=== PATIENT | male | born 1960 | race Caucasian/White ===

== ENCOUNTER 2017-05-23 16:38 | Emergency (ER) | payer MEDICARE ==
[2017-05-23] MEDS ORDERED: NORMAL SALINE 1000 ML 1,000 ML IV PRN (17:08)
--- NOTE | 2017-05-23 17:09 | ER Document Report ---
ED Medical Screen (RME) - General Chief Complaint: Abdominal Pain Stated Complaint: ABDOMINAL PAIN Time Seen by Provider: 05/23/17 17:07 Notes: Patient presents with days of right lower quadrant abdominal pain. It does radiate into his right inguinal area. He states he has been trouble getting his urine output. Patient denies any diarrhea. He has had decreased appetite. No fevers. The pain has been increasing over the last several days. TRAVEL OUTSIDE OF THE [place] IN LAST 30 DAYS: No - Related Data Allergies/Adverse Reactions: sulfamethoxazole [From Bactrim] Allergy (Mild, Verified 05/23/17 16:58) Generalized Itching trimethoprim [From Bactrim] Allergy (Mild, Verified 05/23/17 16:58) Generalized Itching latex Allergy (Verified 05/23/17 16:47) morphine Allergy (Verified 05/23/17 16:58) Generalized Itching Past Medical History - Past Medical History Cardiac Medical History: Reports: Hx Hypertension Pulmonary Medical History: Reports: Hx COPD Renal/ Medical History: Denies: Hx Peritoneal Dialysis Musculoskeltal Medical History: Reports Hx Arthritis Psychiatric Medical History: Reports: Hx Depression Past Surgical History: Reports: Hx Orthopedic Surgery - Bilat hip replacements March and april 2014 - Immunizations Hx Diphtheria, Pertussis, Tetanus Vaccination: Yes Physical Exam - Vital signs Vitals: Temp Pulse Resp BP Pulse Ox 98.0 F 87 18 130/86 H 93 05/23/17 16:47 05/23/17 16:47 05/23/17 16:47 05/23/17 16:47 05/23/17 16:47 Course - Vital Signs Vital signs: Temp Pulse Resp BP Pulse Ox 98.0 F 87 18 130/86 H 93 05/23/17 16:47 05/23/17 16:47 05/23/17 16:47 05/23/17 16:47 05/23/17 16:47
[2017-05-23 17:31] LABS: APPEARANCE,URINE SLIGHTLY-CLOUDY; BILIRUBIN,URINE SMALL (NEGATIVE); GLUCOSE, URINE NEGATIVE (NEGATIVE); KETONES,URINE TRACE mg/dL (NEGATIVE); LEUKOCYTE ESTERASE,URINE NEGATIVE (NEGATIVE); NITRITE,URINE NEGATIVE (NEGATIVE); PROTEIN,URINE 30 mg/dL (NEGATIVE); URINE SPECIFIC GRAVITY 1.026
[2017-05-23 17:37] LABS: ABSOLUTE EOSINOPHILS # (AUTO) 0.4 10^3/uL (0.0-0.6); ABSOLUTE LYMPHOCYTES (AUTO) 2.1 10^3/uL (0.5-4.7); ABSOLUTE MONOCYTES (AUTO) 0.7 10^3/uL (0.1-1.4); ABSOLUTE NEUT (AUTO) 4.6 10^3/uL (1.7-8.2); BASOPHILS % (AUTO) 0.6 % (0-2); EOSINOPHILS % (AUTO) 5.5 % (0-6); HEMATOCRIT 45.3 % (37.9-51.0); HEMOGLOBIN 15.3 g/dL (13.5-17.0); HGB HCT DIFFERENCE 0.6; LYMPHOCYTES % (AUTO) 26.4 % (13-45); MEAN CORPUSCULAR HEMOGLOBIN 32.6 pg (27.0-33.4); MEAN CORPUSCULAR HGB CONC 33.8 g/dL (32.0-36.0); MEAN CORPUSCULAR VOLUME 96 fl (80-97); RED BLOOD COUNT 4.69 10^6/uL (4.35-5.55); RED CELL DISTRIBUTION WIDTH 15.6 % (11.5-14.0); SEGMENTED NEUTROPHILS % (AUTO) 58.5 % (42-78); WHITE BLOOD COUNT 7.9 10^3/uL (4.0-10.5)
[2017-05-23 17:53] LABS: ALANINE AMINOTRANSFERASE 34 U/L (21-72); ALBUMIN 4.5 g/dL (3.5-5.0); ALKALINE PHOSPHATASE 67 U/L (38-126); ANION GAP 10 (5-19); ASPARTATE AMINO TRANSFERASE 23 U/L (17-59); BILIRUBIN,DIRECT 0.4 mg/dL (0.0-0.4); BILIRUBIN,TOTAL 0.5 mg/dL (0.2-1.3); BLOOD UREA NITROGEN 11 mg/dL (7-20); CALCIUM 9.7 mg/dL (8.4-10.2); CARBON DIOXIDE 32 mmol/L (22-30); CHLORIDE 95 mmol/L (98-107); CREATININE RESULT 0.74 mg/dL (0.52-1.25); GLUCOSE 104 mg/dL (75-110); SODIUM 136.7 mmol/L (137-145); TOTAL PROTEIN 7.5 g/dL (6.3-8.2)
[2017-05-23] MEDS ORDERED: ONDANSETRON HCL INJ/PF 4 MG/2 ML SDV IV ONE (19:15)
[2017-05-23] MEDS ORDERED: FENTANYL CITRATE INJ/PF 100 MCG/2 ML AMPUL IV ONE (19:15)
--- NOTE | 2017-05-23 19:15 | ER Document Report ---
ED GI/ - General Chief Complaint: Abdominal Pain Stated Complaint: ABDOMINAL PAIN Time Seen by Provider: 05/23/17 17:07 Notes: Patient is a 56-year-old male comes emergency department for chief complaint of right lower abdominal pain. Symptoms have been worsening for several days, he states now he has no appetite, he has not eaten since yesterday. He reports normal bowel movements, states he has some discomfort with urination. He denies flank pain, fever. He has had multiple hernia repairs including 3 umbilical hernia repairs and a right inguinal hernia repair in the same location where he hurts today. He is new to the area from [place]. He smokes, has a history of COPD, denies cardiovascular history. He is not on a blood thinner. TRAVEL OUTSIDE OF THE [place] IN LAST 30 DAYS: No - Related Data Allergies/Adverse Reactions: sulfamethoxazole [From Bactrim] Allergy (Mild, Verified 05/23/17 16:58) Generalized Itching trimethoprim [From Bactrim] Allergy (Mild, Verified 05/23/17 16:58) Generalized Itching latex Allergy (Verified 05/23/17 16:47) morphine Allergy (Verified 05/23/17 16:58) Generalized Itching Past Medical History - General Information source: Patient - Social History Smoking Status: Current Every Day Smoker Smoking Education Provided: Yes - <3 min Frequency of alcohol use: None Drug Abuse: None Lives with: Family Family History: Reviewed & Not Pertinent, CAD, Malignancy Patient has suicidal ideation: No Patient has homicidal ideation: No - Past Medical History Cardiac Medical History: Reports: Hx Hypertension Pulmonary Medical History: Reports: Hx COPD Renal/ Medical History: Denies: Hx Peritoneal Dialysis Musculoskeltal Medical History: Reports Hx Arthritis Psychiatric Medical History: Reports: Hx Depression Past Surgical History: Reports: Hx Orthopedic Surgery - Bilat hip replacements March and april 2014 - Immunizations Hx Diphtheria, Pertussis, Tetanus Vaccination: Yes Hx Pneumococcal Vaccination: 06/04/14 Review of Systems - Review of Systems Constitutional: No symptoms reported EENT: No symptoms reported Cardiovascular: No symptoms reported Respiratory: No symptoms reported Gastrointestinal: See HPI Genitourinary: No symptoms reported Male Genitourinary: No symptoms reported Musculoskeletal: No symptoms reported Skin: No symptoms reported Hematologic/Lymphatic: No symptoms reported Neurological/Psychological: No symptoms reported Physical Exam - Vital signs Vitals: Temp Pulse Resp BP Pulse Ox 98.0 F 87 18 130/86 H 93 05/23/17 16:47 05/23/17 16:47 05/23/17 16:47 05/23/17 16:47 05/23/17 16:47 Interpretation: Normal - General General appearance: Appears well, Alert In distress: None - HEENT Head: Normocephalic, Atraumatic Eyes: Normal Pupils: PERRL - Respiratory Respiratory status: No respiratory distress Chest status: Nontender Breath sounds: Normal. No: Decreased air movement, Wheezing Chest palpation: Normal - Cardiovascular Rhythm: Regular. No: Tachycardia Heart sounds: Normal auscultation, S1 appreciated, S2 appreciated Murmur: No - Abdominal Inspection: Normal Distension: No distension Bowel sounds: Normal Tenderness: Tender - Examination consistent with right lower abdominal hernia, this is tender to palpation, however this is reducible. Shortly after reduction this is noted to return to coming out. No significant erythema to the area, area is not hard to the touch. Very mild generalized abdominal pain otherwise. Organomegaly: No organomegaly - Back Back: Normal, Nontender. No: Tender - Extremities General upper extremity: Normal inspection, Nontender, Normal strength, Normal temperature General lower extremity: Normal inspection, Nontender, Normal strength, Normal temperature - Neurological Neuro grossly intact: Yes Cognition: Normal Orientation: AAOx4 [place] Coma Scale Eye Opening: Spontaneous [place] Coma Scale Verbal: Oriented [place] Coma Scale Motor: Obeys Commands [place] Coma Scale Total: 15 Speech: Normal Motor strength normal: LUE, RUE, LLE, RLE Sensory: Normal - Psychological Associated symptoms: Normal affect, Normal mood - Skin Skin Temperature: Warm Skin Moisture: Dry Skin Color: Normal Course - Re-evaluation Re-evalutation: No leukocytosis, tachycardia, hypotension, or fever. Hernia is is not erythematous or rigid, seems to be reducible but immediately comes back out and is painful whenever the area is even mildly palpated. 05/23/17 19:40 Called and spoke with Surgeon, Dr. Virgen. He states he would like a CAT scan and he wants to be called back with the results. Surgeon called back, states he does not want oral contrast. CAT scan shows no acute abnormalities. Dr. Virgen at bedside, he evaluated the patient, agrees and the hernia is reducible and needs to be fixed but not emergently. His recommendation is for close follow-up at the surgical clinic, patient will be given symptom management, patient will also be given nicotine patches to help with smoking cessation which was discussed in detail. Discussed return precautions in detail as well. Patient states understanding and agreement. - Vital Signs Vital signs: Temp Pulse Resp BP Pulse Ox 98.1 F 79 18 140/93 H 97 05/23/17 21:24 05/23/17 21:24 05/23/17 21:24 05/23/17 21:24 05/23/17 21:24 - Laboratory Result Diagrams: 05/23/17 17:20 05/23/17 17:20 Laboratory results interpreted by me: 05/23/17 05/23/17 05/23/17 17:15 17:20 17:20 RDW 15.6 H Sodium 136.7 L Chloride 95 L Carbon Dioxide 32 H Urine Protein 30 H Urine Ketones TRACE H Urine Bilirubin SMALL H Urine Urobilinogen 2.0 H Urine Ascorbic Acid 20 H Discharge - Discharge Clinical Impression: Abdominal hernia Qualifiers: Hernia type: unspecified Obstruction and gangrene presence: without obstruction or gangrene Recurrence: not specified as recurrent Qualified Code(s) : K46.9 - Unspecified abdominal hernia without obstruction or gangrene Abdominal pain Qualifiers: Abdominal location: lower abdomen, unspecified Qualified Code(s): R10.30 - Lower abdominal pain, unspecified Condition: Stable Disposition: HOME, SELF-CARE Additional Instructions: Please call the surgical referral listed for a close follow-up with the surgical clinic for management and repair of your hernia. If you take the pain medicine, also take the stool softener. Stop smoking. Use the patches as prescribed. Return the emergency department for any concerning or worsening symptoms including severe pain, redness to the area, vomiting, fever, or any other concerning symptoms. Prescriptions: Docusate Sodium [Colace 100 mg Capsule] 100 mg PO DAILY #30 capsule Hydrocodone/Acetaminophen [[place] 5-325 Tablet] 1 - 2 each PO Q4H PRN #12 tablet PRN Reason: Nicotine [Nicoderm 21 mg/24 Hr Transderm Patch] 1 patch TD DAILY #30 patch.[email or web address] Forms: Smoking Cessation Education Referrals: VIC MENDEZ MD [ACTIVE STAFF] - Follow up tomorrow
--- NOTE | 2017-05-23 20:50 | RADIOLOGY REPORT (SQ) ---
EXAM DESCRIPTION: CT ABD/PELVIS WITH IV ONLY COMPLETED DATE/TIME: 05/23/2017 8:36 pm REASON FOR STUDY: right abd pain, eval hernia COMPARISON: None. TECHNIQUE: CT scan of the abdomen and pelvis performed using helical scanning technique with dynamic intravenous contrast injection. No oral contrast. Images reviewed with lung, soft tissue, and bone windows. Reconstructed coronal and sagittal MPR images reviewed. Delayed images for evaluation of the urinary system also acquired. All images stored on PACS. All CT scanners at this facility use dose modulation, iterative reconstruction, and/or weight based d osing when appropriate to reduce radiation dose to as low as reasonably achievable (ALARA). [facility]: Dose Right [facility]: CareDose [facility]: Dose Right [facility]: Teradose 4D [facility]: [place] CONTRAST TYPE AND DOSE: contrast/concentration: Isovue 370.00 mg/ml; Total Contrast Delivered: 92.0 ml; Total Saline Delivered: 70.0 ml RENAL FUNCTION: BUN 11, creatinine 0.74 RADIATION DOSE: Up-to-date CT equipment and radiation dose reduction techniques were employed. CTDIv ol: 17.6 - 18.8 mGy. DLP: 1785 mGy-cm.. LIMITATIONS: None. FINDINGS: LOWER CHEST: No significant findings. No nodules or infiltrates. LIVER: Normal size. No masses. No dilated ducts. SPLEEN: Normal size. No focal lesions. PANCREAS: No masses. No significant calcifications. No adjacent inflammation or peripancreatic fluid collections. Pancreatic duct not dilated. GALLBLADDER: No identified stones by CT criteria. No inflammatory changes to suggest cholecystitis. ADRENAL GLANDS: No significant masses or asymmetry. RIGHT KIDNEY AND URETER: No solid masses. No significant calcifications. No hydronephrosis or hyd roureter. LEFT KIDNEY AND URETER: No solid masses. No significant calcifications. No hydronephrosis or hydr oureter. AORTA AND VESSELS: No aneurysm. No dissection. Renal arteries, SMA, celiac without stenosis. RETROPERITONEUM: No retroperitoneal adenopathy, hemorrhage or masses. BOWEL AND PERITONEAL CAVITY: No masses or inflammatory changes. No free fluid or peritoneal masses. APPENDIX: Normal. PELVIS: No mass. No free fluid. Normal bladder. ABDOMINAL WALL: There is a small defect of the emboli kiss. This contains a small amount of omental fat. Small bowel is adjacent to the hernia but there is no incarceration. No obstruction. BONES: There are postsurgical changes in both hips. OTHER: No other significant finding. IMPRESSION: NO SIGNIFICANT OR ACUTE FINDING IN THE ABDOMEN OR PELVIS ON CT SCAN WITH IV CONTRAST. TECHNICAL DOCUMENTATION: JOB ID: [id number] Quality ID # [id number]: Final reports with documentation of one or more dose reduction techniques (e.g., Au tomated exposure control, adjustment of the mA and/or kV according to patient size, use of iterative reconstruction technique) 2010 [employer]- All Rights Reserved
[2017-05-23] MEDS ORDERED: HYDROCODONE/ACETAMINOPHEN 5-325 MG 6 TAB/DSPK PO PRN (20:56)
--- NOTE | 2017-05-23 21:13 | PDOC H&P ---
History of Present Illness Patient complains of: Right groin pain x 4 days with bulge, reduced History of Present Illness: SUNNY WALLS is a 56 year old male who comes to the emergency department with a complaint of right lower abdominal pain. Symptoms have been worsening for several days (about 4), he states now he has no appetite and has not eaten since yesterday. He reports normal bowel movements, states he has some discomfort with urination. He denies flank pain, fever. He has had multiple hernia repairs including 3 umbilical hernia repairs and a right inguinal hernia repair with mesh. The patient is a heavy smoker and has a history of COPD, denies cardiovascular history. He is not on a blood thinner. Past Medical History Cardiac Medical History: Reports: Hypertension Pulmonary Medical History: Reports: Chronic Obstructive Pulmonary Disease (COPD) Musculoskeltal Medical History: Reports: Arthritis Psychiatric Medical History: Reports: Depression Past Surgical History Past Surgical History: Reports: Orthopedic Surgery - Bilat hip replacements March and april 2014 Social History Information Source: Patient Occupation: retired Lives with: Family Smoking Status: Current Every Day Smoker - a few cigarettes/day Cigarettes Packs Per Day: 1 Cigars Per Day: 0 Pipes Per Day: 0 Number of Years Smokin Frequency of Alcohol Use: None Hx Recreational Drug Use: No Drugs: None Hx Prescription Drug Abuse: No Family History Family History: Reviewed & Not Pertinent, CAD, Malignancy Parental Family History Reviewed: Yes - none Children Family History Reviewed: Yes - none Sibling(s) Family History Reviewed.: Yes - none Medication/Allergy Home Medications: Citalopram Hydrobromide [Celexa 40 mg Tablet] 1 tab PO DAILY 06/16/16 Esomeprazole Mag Trihydrate [Nexium] 40 mg PO DAILY 06/16/16 Fluticasone/Vilanterol [Breo Ellipta 100-25 Mcg INH] 1 each IH QHS 06/16/16 Acetaminophen [Tylenol 325 mg Tablet] 650 mg PO Q4HP PRN tablet 06/17/16 Gabapentin [Neurontin 300 mg Capsule] 600 mg PO Q8 #180 capsule 06/17/16 Guaifenesin [Mucinex Sr 600 mg Tablet.sa] 1,200 mg PO Q12 #30 tablet.sa Ipratropium/Albuterol Sulfate [Duoneb 3 ml Ampul] 3 ml NEB Q6HP PRN #60 vial.neb 06/17/16 Levofloxacin [Levaquin 750 mg Tablet] 750 mg PO DAILY #7 tablet 06/17/16 Prednisone [Deltasone 20 mg Tablet] 20 mg PO ASDIR PRN #18 tablet 06/17/16 Tiotropium [place] [Spiriva Handihaler 5 Cap/Kit (18 Mcg/Cap)] 1 cap IH DAILY # 30 cap 06/17/16 Tramadol HCl [Ultram 50 mg Tablet] 50 mg PO Q4HP PRN #40 tablet 06/17/16 Docusate Sodium [Colace 100 mg Capsule] 100 mg PO DAILY #30 capsule 05/23/17 Hydrocodone/Acetaminophen [[place] 5-325 Tablet] 1 - 2 each PO Q4H PRN #12 tablet 05/23/17 Nicotine [Nicoderm 21 mg/24 Hr Transderm Patch] 1 patch TD DAILY #30 patch.td24 05/23/17 Allergies/Adverse Reactions: sulfamethoxazole [From Bactrim] Allergy (Mild, Verified 05/23/17 16:58) Generalized Itching trimethoprim [From Bactrim] Allergy (Mild, Verified 05/23/17 16:58) Generalized Itching latex Allergy (Verified 05/23/17 16:47) morphine Allergy (Verified 05/23/17 16:58) Generalized Itching Physical Exam Vital Signs: Temp Pulse Resp BP Pulse Ox 98.0 F 93 18 130/86 H 93 05/23/17 16:47 05/23/17 16:47 05/23/17 16:47 05/23/17 16:47 05/23/17 16:47 Intake & Output 05/22/17 05/23/17 05/24/17 06:59 06:59 06:59 Weight 85.6 kg General appearance: PRESENT: no acute distress Head exam: PRESENT: atraumatic Neck exam: PRESENT: full ROM Respiratory exam: PRESENT: clear to auscultation candi Cardiovascular exam: PRESENT: RRR GI/Abdominal exam: PRESENT: soft, other - R groin: minimally tender, bulge appreciated on coughing and Valsalva, but reducible Results Laboratory Results: 05/23/17 17:20 05/23/17 17:20 05/23/17 05/23/17 05/23/17 17:15 17:20 17:20 WBC 7.9 RBC 4.69 Hgb 15.3 Hct 45.3 MCV 96 MCH 32.6 MCHC 33.8 RDW 15.6 H Plt Count 232 Seg Neutrophils % 58.5 Lymphocytes % 26.4 Monocytes % 9.0 Eosinophils % 5.5 Basophils % 0.6 Absolute Neutrophils 4.6 Absolute Lymphocytes 2.1 Absolute Monocytes 0.7 Absolute Eosinophils 0.4 Absolute Basophils 0.0 Sodium 136.7 L Potassium 4.0 Chloride 95 L Carbon Dioxide 32 H Anion Gap 10 BUN 11 Creatinine 0.74 Est GFR ( Amer) > 60 Est GFR (Non-Af Amer) > 60 Glucose 104 Calcium 9.7 Total Bilirubin 0.5 AST 23 ALT 34 Alkaline Phosphatase 67 Total Protein 7.5 Albumin 4.5 Urine Color [place]N Urine Appearance SLIGHTLY-CLOUDY Urine pH 5.0 Ur Specific [place] 1.026 Urine Protein 30 H Urine Glucose (UA) NEGATIVE Urine Ketones TRACE H Urine Blood NEGATIVE Urine Nitrite NEGATIVE Ur Leukocyte Esterase NEGATIVE Urine WBC (Auto) 2 Urine RBC (Auto) 3 Impressions: Abdomen/Pelvis CT 05/23/17 19:52 IMPRESSION: NO SIGNIFICANT OR ACUTE FINDING IN THE ABDOMEN OR PELVIS ON CT SCAN WITH IV CONTRAST. Assessment & Plan - Plan Summary Plan Summary: A/ Right groin pain with bulge as per recurrent inguinal hernia (previously operated on 4 yrs ago) R groin bulge reduced in the ER by gentle pressure; currently no bulge appreciated except on Valsalva Blood work WNL Moderately severe COPD (patient on albuterol nebulizer) Current smoker P/ Patient can be safely discharged to home tonight Follow up in the clinic within [address] Waite for elective repair as outpatient Patient counseled about quitting smoking (i.e. Nicorette patches to be prescribed by ER MD) No heavy lifting/coughing until patient sees Dr. Waite in the office Should the patient experience right groin pain and or bulge before the office appointment, my recommendation is to return to the Emergency Room immediately for possible emergency herniorraphy The patient understands all the above
[2017-05-23 21:24] VITALS: BP 140/93
[2017-05-25] MEDS ORDERED: NORMAL SALINE 1000 ML 1,000 ML IV PRN (23:44)
--- NOTE | 2017-05-25 23:44 | PDOC H&P ---
History of Present Illness Admission Date/PCP: May 25 2017 Patient complains of: Right groin pain with urination History of Present Illness: This 56-year-old male was seen in the emergency room 48 hours ago because of a right inguinal hernia, which had become incarcerated, which was then reduced successfully. Patient was to see Dr. Waite tomorrow, May 26, but came to the emergency room because of recurrent pain in the right groin, especially with urination. He denies any nausea, vomiting, change in bowel habits, or recurrent incarceration. When seen in the emergency room today, patient was noted to have marked tenderness in the right groin, with no evidence of incarceration. This was the case [address] scan of the abdomen confirmed the absence of incarceration. Given the degree of tenderness in his right groin at this time, admission has been recommended, for repair of his right inguinal hernia in the a.m. Past Medical History Cardiac Medical History: Reports: Hypertension Pulmonary Medical History: Reports: Chronic Obstructive Pulmonary Disease (COPD) Musculoskeltal Medical History: Reports: Arthritis Psychiatric Medical History: Reports: Depression Past Surgical History Past Surgical History: Reports: Orthopedic Surgery - Bilat hip replacements March and april 2014 Social History Lives with: Family Smoking Status: Current Every Day Smoker Cigarettes Packs Per Day: 1 Cigars Per Day: 0 Pipes Per Day: 0 Number of Years Smokin Frequency of Alcohol Use: None Hx Recreational Drug Use: No Drugs: None Hx Prescription Drug Abuse: No Family History Family History: Reviewed & Not Pertinent, CAD, Malignancy Parental Family History Reviewed: No Children Family History Reviewed: No Sibling(s) Family History Reviewed.: No Medication/Allergy Home Medications: Citalopram Hydrobromide [Celexa 40 mg Tablet] 1 tab PO DAILY 06/16/16 Esomeprazole Mag Trihydrate [Nexium] 40 mg PO DAILY 06/16/16 Fluticasone/Vilanterol [Breo Ellipta 100-25 Mcg INH] 1 each IH QHS 06/16/16 Acetaminophen [Tylenol 325 mg Tablet] 650 mg PO Q4HP PRN tablet 06/17/16 Gabapentin [Neurontin 300 mg Capsule] 600 mg PO Q8 #180 capsule 06/17/16 Guaifenesin [Mucinex Sr 600 mg Tablet.sa] 1,200 mg PO Q12 #30 tablet.sa Ipratropium/Albuterol Sulfate [Duoneb 3 ml Ampul] 3 ml NEB Q6HP PRN #60 vial.neb 06/17/16 Levofloxacin [Levaquin 750 mg Tablet] 750 mg PO DAILY #7 tablet 06/17/16 Prednisone [Deltasone 20 mg Tablet] 20 mg PO ASDIR PRN #18 tablet 06/17/16 Tiotropium [place] [Spiriva Handihaler 5 Cap/Kit (18 Mcg/Cap)] 1 cap IH DAILY # 30 cap 06/17/16 Tramadol HCl [Ultram 50 mg Tablet] 50 mg PO Q4HP PRN #40 tablet 06/17/16 Docusate Sodium [Colace 100 mg Capsule] 100 mg PO DAILY #30 capsule 05/23/17 Hydrocodone/Acetaminophen [[place] 5-325 Tablet] 1 - 2 each PO Q4H PRN #12 tablet 05/23/17 Nicotine [Nicoderm 21 mg/24 Hr Transderm Patch] 1 patch TD DAILY #30 patch.td24 05/23/17 Allergies/Adverse Reactions: sulfamethoxazole [From Bactrim] Allergy (Mild, Verified 05/23/17 16:58) Generalized Itching trimethoprim [From Bactrim] Allergy (Mild, Verified 05/23/17 16:58) Generalized Itching latex Allergy (Verified 05/23/17 16:47) morphine Allergy (Verified 05/23/17 16:58) Generalized Itching Physical Exam Vital Signs: Temp Pulse Resp BP Pulse Ox 98.1 F 79 18 140/93 H 97 05/23/17 21:24 05/23/17 21:24 05/23/17 21:24 05/23/17 21:24 05/23/17 21:24 Intake & Output 05/24/17 05/25/17 05/26/17 06:59 06:59 06:59 Weight 85.6 kg General appearance: PRESENT: no acute distress, cooperative, morbidly obese, well-developed Eye exam: PRESENT: conjunctiva pink, PERRLA Mouth exam: PRESENT: moist, neck supple Neck exam: PRESENT: full ROM, JVD. ABSENT: lymphadenopathy, tenderness, thyromegaly, tracheal deviation Respiratory exam: PRESENT: clear to auscultation candi Cardiovascular exam: PRESENT: RRR GI/Abdominal exam: PRESENT: hernia, normal bowel sounds, soft, tenderness - Marked tenderness over the right inguinal canal. Bulge/positive cough reflex noted with Valsalva and coughing. Rectal exam: PRESENT: deferred Extremities exam: PRESENT: full ROM Musculoskeletal exam: PRESENT: full ROM Neurological exam: PRESENT: alert, awake, oriented to person, oriented to place , oriented to time, oriented to situation Psychiatric exam: PRESENT: appropriate affect, normal mood Skin exam: PRESENT: intact, normal color Results Laboratory Results: 05/23/17 17:20 05/23/17 17:20 Impressions: Abdomen/Pelvis CT 05/23/17 19:52 IMPRESSION: NO SIGNIFICANT OR ACUTE FINDING IN THE ABDOMEN OR PELVIS ON CT SCAN WITH IV CONTRAST. Assessment & Plan - Diagnosis (1) Right inguinal hernia Is this a current diagnosis for this admission?: Yes - Plan Summary Plan Summary: Repair of recurrent right inguinal hernia in the a.m.
[2017-05-25] MEDS ORDERED: CEFAZOLIN 2 GM/D5W RTU 2 GM/50 ML RTUPB IV SCH (23:45)
[2017-05-25] MEDS ORDERED: PREDNISONE 20 MG TABLET PO PRN (23:54)
[2017-05-25] MEDS ORDERED: IPRATROPIUM/ALBUTEROL 0.5-2.5 MG/3 ML AMPUL NEB PRN (23:54)
[2017-05-26] MEDS ORDERED: CEFAZOLIN 2 GM/D5W RTU 2 GM/50 ML RTUPB IV ONE (00:15)
--- NOTE | 2017-05-26 08:52 | RADIOLOGY REPORT (SQ) ---
EXAM DESCRIPTION: CHEST PA/LAT COMPLETED DATE/TIME: 05/26/2017 8:39 am REASON FOR STUDY: Preop COMPARISON: None. EXAM PARAMETERS: NUMBER OF VIEWS: two views TECHNIQUE: Digital Frontal and Lateral radiographic views of the chest acquired. RADIATION DOSE: NA LIMITATIONS: none FINDINGS: LUNGS AND PLEURA: COPD. Mild diffuse increased interstitial densities which appear more p rominent than on the prior study. Differential includes worsening chronic interstitial lung disease, interstitial pneumonitis and interstitial edema. There is no other evidence of congestive failure m aking edema less likely. MEDIASTINUM AND HILAR STRUCTURES: No masses or contour abnormalities. HEART AND VASCULAR STRUCTURES: Heart normal size. No evidence for failure. BONES: No acute findings. HARDWARE: None in the chest. OTHER: No other significant finding. IMPRESSION: 1. COPD. 2. Worsening mild diffuse increased interstitial densities with differential including chronic inter stitial lung disease, interstitial pneumonitis and interstitial edema. TECHNICAL DOCUMENTATION: JOB ID: [id number] [employer]- All Rights Reserved
[2017-05-26] MEDS ORDERED: TIOTROPIUM BROMIDE DPI 5 CAP/KIT (18 MCG/CAP) IH SCH (10:00)
[2017-05-26] MEDS ORDERED: PREDNISONE 20 MG TABLET PO SCH (10:00)
--- NOTE | 2017-05-26 18:49 | Brief Operative Note ---
BRIEF OPERATIVE REPORT DATE OF SURGERY: 05/26/17 TIME OF SURGERY: 17:30 PREOPERATIVE DIAGNOSIS: Right Inguinal Hernia POSTOPERATIVE DIAGNOSIS: Direct right inguinal hernia SURGEON: NAJMA PURCELL FINDINGS: Direct right inguinal hernia with incarcerated pre-peritoneal fat COMPLICATIONS: None ESTIMATED BLOOD LOSS: 1cc TISSUE REMOVED OR ALTERED: None TECHNICAL PROCEDURE: See Dictation
[2017-05-26] MEDS ORDERED: IPRATROPIUM/ALBUTEROL 0.5-2.5 MG/3 ML AMPUL NEB PRN (18:51)
[2017-05-26] MEDS ORDERED: ALBUTEROL SULFATE HFA (90 MCG/PUFF) 8 GM MDI (1 MDI/ER DISP) IH PRN (18:51)
[2017-05-26] MEDS ORDERED: FENTANYL 12 MCG/HR PATCH.TD72 TD PRN (18:51)
[2017-05-26] MEDS ORDERED: OXYCODONE HCL IR 5 MG TABLET PO PRN (20:34)
[2017-05-26] MEDS ORDERED: GABAPENTIN 300 MG CAPSULE PO SCH (22:00)
[2017-05-26] MEDS ORDERED: (PENDING PHARMACY ID) (Fluticasone/Vilanterol [Breo Ellipta 100-25 Mcg Inh] 1 EACH) IH SCH (22:00)
[2017-05-27] MEDS ORDERED: (PENDING PHARMACY ID) (Citalopram Hydrobromide [Celexa 40 Mg Tablet] 1 TAB) PO SCH (10:00)
[2017-05-27] MEDS ORDERED: CITALOPRAM HYDROBROMIDE 20 MG TABLET PO SCH (10:00)
[2017-05-29] MEDS ORDERED: PREDNISONE 20 MG TABLET PO SCH (10:00)
[2017-06-01] MEDS ORDERED: PREDNISONE 20 MG TABLET PO SCH (10:00)
== END 2017-05-23 21:28 | disposition home or self-care (01) ==
LOC: ER 16:38
DX: K40.91 Unilateral inguinal hernia, without obstruction or gangrene, recurrent (principal); R10.31 Right lower quadrant pain; R63.0 Anorexia; R30.0 Dysuria; J44.9 Chronic obstructive pulmonary disease, unspecified; I10 Essential (primary) hypertension; F17.200 Nicotine dependence, unspecified, uncomplicated; Z71.6 Tobacco abuse counseling; Z88.1 Allergy status to other antibiotic agents; Z91.040 Latex allergy status; Z88.5 Allergy status to narcotic agent
CPT/HCPCS: 99284; 96361; 96374; 96375; 36415; 85025; 80053; 81001; 74177; J3010; J2405; J7030; A9270; 71020

== ENCOUNTER 2017-05-25 19:37 | Observation (INO) | payer MEDICARE ==
[2017-05-25] MEDS ORDERED: FENTANYL CITRATE INJ/PF 100 MCG/2 ML AMPUL IV ONE ×2 (20:31→23:16)
[2017-05-25] MEDS ORDERED: ONDANSETRON HCL INJ/PF 4 MG/2 ML SDV IV ONE (20:31)
[2017-05-25] MEDS ORDERED: NORMAL SALINE 1000 ML 1,000 ML IV ONE (20:31)
--- NOTE | 2017-05-25 20:32 | ER Document Report ---
ED GI/ - General Chief Complaint: Groin Pain Stated Complaint: GROIN PAIN/ABDOMINAL PAIN Time Seen by Provider: 05/25/17 20:20 Notes: Patient is a 56-year-old male comes emergency department for return visit for known abdominal hernia, he reports the area has become persistently painful and he cannot stand it. He has a follow-up in the clinic for surgical consult tomorrow afternoon. He denies vomiting, fever, he is still moving his bowels and urinating. He has had 3 umbilical hernia repairs and a right inguinal hernia repair near the same location as the hernia today. He has also had hip replacements. He smokes, past medical history of COPD. TRAVEL OUTSIDE OF THE [place] IN LAST 30 DAYS: No - Related Data Allergies/Adverse Reactions: sulfamethoxazole [From Bactrim] Allergy (Mild, Verified 05/23/17 16:58) Generalized Itching trimethoprim [From Bactrim] Allergy (Mild, Verified 05/23/17 16:58) Generalized Itching latex Allergy (Verified 05/23/17 16:47) morphine Allergy (Verified 05/23/17 16:58) Generalized Itching Past Medical History - General Information source: Patient - Social History Smoking Status: Never Smoker Frequency of alcohol use: None Drug Abuse: None Lives with: Family Family History: Reviewed & Not Pertinent, CAD, Malignancy Patient has suicidal ideation: No Patient has homicidal ideation: No - Past Medical History Cardiac Medical History: Reports: Hx Hypertension Pulmonary Medical History: Reports: Hx COPD Renal/ Medical History: Denies: Hx Peritoneal Dialysis Musculoskeltal Medical History: Reports Hx Arthritis Psychiatric Medical History: Reports: Hx Depression Past Surgical History: Reports: Hx Orthopedic Surgery - Bilat hip replacements March and april 2014 - Immunizations Hx Diphtheria, Pertussis, Tetanus Vaccination: Yes Hx Pneumococcal Vaccination: 06/04/14 Review of Systems - Review of Systems Constitutional: No symptoms reported EENT: No symptoms reported Cardiovascular: No symptoms reported Respiratory: No symptoms reported Gastrointestinal: See HPI Genitourinary: No symptoms reported Male Genitourinary: No symptoms reported Musculoskeletal: No symptoms reported Skin: No symptoms reported Hematologic/Lymphatic: No symptoms reported Neurological/Psychological: No symptoms reported Physical Exam - Vital signs Vitals: Temp Pulse Resp BP Pulse Ox 98 F 85 18 152/92 H 91 L 05/25/17 19:55 05/25/17 19:55 05/25/17 19:55 05/25/17 19:55 05/25/17 19:55 Interpretation: Normal - General General appearance: Alert, Anxious In distress: Mild - Patient sitting uncomfortably, appears to be in some pain - HEENT Head: Normocephalic, Atraumatic Eyes: Normal Conjunctiva: Normal Extraocular movements intact: Yes Eyelashes: Normal Pupils: PERRL Nasal: Normal Mouth/Lips: Normal Mucous membranes: Normal Pharynx: Normal Neck: Normal - Respiratory Respiratory status: No respiratory distress Chest status: Nontender Breath sounds: Normal. No: Decreased air movement, Wheezing Chest palpation: Normal - Cardiovascular Rhythm: Regular. No: Tachycardia Heart sounds: Normal auscultation, S1 appreciated, S2 appreciated Murmur: No - Abdominal Inspection: Normal Distension: No distension Bowel sounds: Normal Tenderness: Tender - There is focal tenderness over what appears to be a hernia in the right lower abdomen/inguinal area. Area is not rigid or erythematous. Remaining abdomen is unremarkable. - Back Back: Normal, Nontender. No: Tender, CVA tenderness - Extremities General upper extremity: Normal inspection, Nontender, Normal strength, Normal temperature General lower extremity: Normal inspection, Nontender, Normal strength, Normal temperature - Neurological Neuro grossly intact: Yes Cognition: Normal Orientation: AAOx4 [place] Coma Scale Eye Opening: Spontaneous [place] Coma Scale Verbal: Oriented [place] Coma Scale Motor: Obeys Commands [place] Coma Scale Total: 15 Speech: Normal Cranial nerves: Normal Cerebellar coordination: Normal Motor strength normal: LUE, RUE, LLE, RLE Additional motor exam normals: Equal boat patcher plastic Sensory: Normal - Psychological Associated symptoms: Normal affect, Normal mood - Skin Skin Temperature: Warm Skin Moisture: Dry Skin Color: Normal Course - Re-evaluation Re-evalutation: Patient continues to have a tender abdomen on my exam, no rigidity, area is not erythematous, I am able to reduce the hernia although the area is tender. No fever, tachycardia, hypotension. No leukocytosis, lactic acid is normal. Discussed with Dr. Briones, surgery consumer loan processor, he states he will evaluate the patient. Dr. Briones states that he will admit the patient for surgery in the morning. Patient is very agreeable with this plan. - Vital Signs Vital signs: Temp Pulse Resp BP Pulse Ox 98.1 F 75 16 148/98 H 93 05/26/17 00:32 05/26/17 00:32 05/26/17 00:32 05/26/17 00:32 05/26/17 00:32 - Laboratory Result Diagrams: 05/25/17 21:20 05/25/17 21:20 Laboratory results interpreted by me: 05/25/17 05/25/17 21:20 21:20 RDW 15.5 H Carbon Dioxide 32 H Discharge - Discharge Clinical Impression: Abdominal hernia Qualifiers: Hernia type: unspecified Obstruction and gangrene presence: without obstruction or gangrene Recurrence: not specified as recurrent Qualified Code(s) : K46.9 - Unspecified abdominal hernia without obstruction or gangrene Abdominal pain Qualifiers: Abdominal location: lower abdomen, unspecified Qualified Code(s): R10.30 - Lower abdominal pain, unspecified Condition: Stable Disposition: ADMITTED INPATIENT Admitting Provider: Surgicalist Unit Admitted: Surgical Floor
[2017-05-25 20:53] LABS: APPEARANCE,URINE CLEAR; BILIRUBIN,URINE NEGATIVE (NEGATIVE); GLUCOSE, URINE NEGATIVE (NEGATIVE); KETONES,URINE NEGATIVE (NEGATIVE); LEUKOCYTE ESTERASE,URINE NEGATIVE (NEGATIVE); NITRITE,URINE NEGATIVE (NEGATIVE); PROTEIN,URINE NEGATIVE (NEGATIVE); URINE SPECIFIC GRAVITY 1.004; UROBILINOGEN,URINE NEGATIVE mg/dL (<2.0)
[2017-05-25 21:32] LABS: ABSOLUTE BASOPHILS # (AUTO) 0.1 10^3/uL (0.0-0.2); ABSOLUTE EOSINOPHILS # (AUTO) 0.4 10^3/uL (0.0-0.6); ABSOLUTE LYMPHOCYTES (AUTO) 1.9 10^3/uL (0.5-4.7); ABSOLUTE MONOCYTES (AUTO) 0.7 10^3/uL (0.1-1.4); EOSINOPHILS % (AUTO) 5.7 % (0-6); HEMATOCRIT 43.1 % (37.9-51.0); HEMOGLOBIN 14.8 g/dL (13.5-17.0); HGB HCT DIFFERENCE 1.3; LYMPHOCYTES % (AUTO) 26.3 % (13-45); MEAN CORPUSCULAR HEMOGLOBIN 32.9 pg (27.0-33.4); MEAN CORPUSCULAR HGB CONC 34.3 g/dL (32.0-36.0); MEAN CORPUSCULAR VOLUME 96 fl (80-97); MONOCYTES % (AUTO) 10.1 % (3-13); RED CELL DISTRIBUTION WIDTH 15.5 % (11.5-14.0); SEGMENTED NEUTROPHILS % (AUTO) 56.9 % (42-78); WHITE BLOOD COUNT 7.1 10^3/uL (4.0-10.5)
[2017-05-25 21:47] LABS: ALANINE AMINOTRANSFERASE 21 U/L (21-72); ALBUMIN 4.3 g/dL (3.5-5.0); ALKALINE PHOSPHATASE 61 U/L (38-126); ANION GAP 10 (5-19); ASPARTATE AMINO TRANSFERASE 23 U/L (17-59); BILIRUBIN,DIRECT 0.4 mg/dL (0.0-0.4); BILIRUBIN,TOTAL 0.4 mg/dL (0.2-1.3); BLOOD UREA NITROGEN 10 mg/dL (7-20); CALCIUM 9.7 mg/dL (8.4-10.2); CARBON DIOXIDE 32 mmol/L (22-30); CHLORIDE 98 mmol/L (98-107); GLUCOSE 91 mg/dL (75-110); POTASSIUM 3.8 mmol/L (3.6-5.0); SODIUM 140.1 mmol/L (137-145)
[2017-05-26] MEDS ORDERED: ONDANSETRON HCL INJ/PF 4 MG/2 ML SDV IV PRN (01:32)
[2017-05-26] MEDS ORDERED: DEXTROSE 40% GEL 15 GM TUBE PO PRN ×2 (01:32)
[2017-05-26] MEDS ORDERED: GLUCAGON,HUMAN RECOMB 1 MG INJ SUBCUT PRN (01:32)
[2017-05-26] MEDS ORDERED: DEXTROSE 50%-WATER 25 GM/50 ML DISP.SYRIN IV PRN ×2 (01:32)
[2017-05-26] MEDS ORDERED: IPRATROPIUM/ALBUTEROL 0.5-2.5 MG/3 ML AMPUL NEB PRN ×2 (01:41→08:00)
[2017-05-26] MEDS ORDERED: PREDNISONE 20 MG TABLET PO PRN (01:41)
--- NOTE | 2017-05-26 02:17 | HISTORY AND PHYSICAL E ---
History and Physical NAME: SUNNY WALLS : 1960 AGE: 56Y ADMITTED: 05/26/2017 ROOM: 528 REASON FOR ADMISSION: Right inguinal hernia. HISTORY OF PRESENT ILLNESS: This 56-year-old male presents to the emergency room for a return visit for a right inguinal hernia that was documented 2 days ago. Patient presented to the emergency room with an incarcerated right inguinal hernia, which was subsequently reduced, and patient was sent home and told to follow up with Dr. Waite for an outpatient visit today. However, patient returned to the emergency room complaining of pain in his right groin that was of significant intensity. The patient states that he has had no nausea, vomiting, or change in bowel habits. The patient's right groin pain has been 8/10, worsening with urination, and although there is no evidence of incarceration as there was 2 days ago, patient continues to have significant pain. For this reason, patient is now admitted and is to undergo repair of his right inguinal hernia in the a.m. PAST MEDICAL HISTORY: Patient has a history of: 1. Hypertension. 2. COPD. 3. History of arthritis. 4. History of depression. 5. History of bilateral hip replacement in March and April of 2014. ALLERGIES: 1. Bactrim. 2. Latex. 3. Morphine. FAMILY HISTORY: Patient has no history of easy bruising or a history of problems with anesthesia in anyone in his family. No history of any free bleeders in his family. There is no history of cardiac, renal, liver disease, or renal disease. PHYSICAL EXAMINATION: GENERAL: Reveals a 56-year-old male who is obese, normally nourished, normally developed, in no acute distress. HEENT: There is no conjunctival pallor or scleral icterus. Mucous membranes are moist and pink. NECK: Supple without nodes, masses, thyromegaly, or bruits. Trachea is midline. CHEST WALL: Good excursions. LUNGS: Clear anteriorly with good entry. CARDIOVASCULAR: S1, S2 are audible without murmurs, rubs, or gallops. ABDOMEN: Obese, soft, nontender. RIGHT GROIN: Patient has a positive cough reflex/bulge in the right groin with Valsalva maneuver and with coughing. It is easily reducible but mildly tender throughout the groin on the right side. EXTREMITIES: Full range of motion. RECTAL: Deferred. IMPRESSION: Recurrent right inguinal hernia. PLAN: Patient is scheduled for repair of right inguinal hernia in the a.m. DICTATING PHYSICIAN: NAJMA PURCELL M.D. [id number] PHY#: [id number] ID: [id number] JOB#: [id number] ACCT: [id number] cc:Syliva GANN MD
[2017-05-26] MEDS ORDERED: CEFAZOLIN 2 GM/D5W RTU 2 GM/50 ML RTUPB IV PRN (02:19)
[2017-05-26] MEDS ORDERED: CEFAZOLIN INJ 1 GM VIAL INJ PRN (02:25)
[2017-05-26] MEDS: MORPHINE SULFATE 10 MG/ML INJ IV PRN ×4 (02:42→20:43)
[2017-05-26] MEDS: DIPHENHYDRAMINE HCL 50 MG/ML VIAL IV PRN ×3 (02:42→11:36)
--- NOTE | 2017-05-26 08:52 | RADIOLOGY REPORT (SQ) ---
EXAM DESCRIPTION: CHEST PA/LAT COMPLETED DATE/TIME: 05/26/2017 8:39 am REASON FOR STUDY: Preop COMPARISON: None. EXAM PARAMETERS: NUMBER OF VIEWS: two views TECHNIQUE: Digital Frontal and Lateral radiographic views of the chest acquired. RADIATION DOSE: NA LIMITATIONS: none FINDINGS: LUNGS AND PLEURA: COPD. Mild diffuse increased interstitial densities which appear more prominent than on the prior study. Differential includes worsening chronic interstitial lung disease, interstitial pneumonitis and interstitial edema. There is no other evidence of congestive failure making edema less likely. MEDIASTINUM AND HILAR STRUCTURES: No masses or contour abnormalities. HEART AND VASCULAR STRUCTURES: Heart normal size. No evidence for failure. BONES: No acute findings. HARDWARE: None in the chest. OTHER: No other significant finding. IMPRESSION: 1. COPD. 2. Worsening mild diffuse increased interstitial densities with differential including chronic interstitial lung disease, interstitial pneumonitis and interstitial edema. TECHNICAL DOCUMENTATION: JOB ID: [id number] [employer]- All Rights Reserved <Electronically signed by DIVYA TOVAR MD in [place]> 05/26/17 0852 MTD
[2017-05-26] MEDS: PREDNISONE 20 MG TABLET PO SCH (09:19)
[2017-05-26] MEDS: NICOTINE 21 MG/24 HR PATCH.TD24 TD SCH (09:20)
[2017-05-26] MEDS: TIOTROPIUM BROMIDE DPI 5 CAP/KIT (18 MCG/CAP) IH SCH (09:51)
[2017-05-26] MEDS ORDERED: BUPIVACAINE HCL 0.5 % INJ/PF 30 ML SDV ONE (13:52)
[2017-05-26] MEDS ORDERED: CEFAZOLIN INJ 1 GM VIAL ONE (15:11)
[2017-05-26] MEDS ORDERED: FENTANYL CITRATE INJ/PF 100 MCG/2 ML AMPUL ONE ×4 (15:12→18:48)
[2017-05-26] MEDS ORDERED: ACETAMINOPHEN 100 ML IV ONE (16:30)
[2017-05-26] MEDS ORDERED: MIDAZOLAM 2 MG/2 ML INJ ONE (16:30)
[2017-05-26] MEDS ORDERED: LIDOCAINE 2% INJ-PF (100 MG/5 ML) SYRINGE ONE (16:30)
[2017-05-26] MEDS ORDERED: PROPOFOL INJ 200 MG/20 ML VIAL IV ONE (16:30)
[2017-05-26] MEDS ORDERED: MEPERIDINE HCL/PF INJ 25 MG/1 ML DISP.SYRIN IV PRN (17:34)
[2017-05-26] MEDS ORDERED: DIPHENHYDRAMINE HCL 50 MG/ML VIAL IV PRN (17:34)
[2017-05-26] MEDS ORDERED: PROMETHAZINE HCL INJ 25 MG/1 ML VIAL IV PRN (17:34)
[2017-05-26] MEDS ORDERED: FENTANYL CITRATE INJ/PF 100 MCG/2 ML AMPUL IV PRN ×2 (17:34)
[2017-05-26] MEDS ORDERED: ESMOLOL HCL INJ/PF 100 MG/10 ML SDV IV ONE (18:30)
[2017-05-26] MEDS ORDERED: GLYCOPYRROLATE INJ 0.4 MG/2 ML VIAL ONE (19:09)
[2017-05-26] MEDS ORDERED: METOCLOPRAMIDE HCL INJ/PF 10 MG/2 ML SDV ONE (19:09)
[2017-05-26] MEDS ORDERED: ONDANSETRON HCL INJ/PF 4 MG/2 ML SDV ONE (19:09)
[2017-05-26] MEDS ORDERED: KETOROLAC TROMETHAMINE 60 MG/2 ML SDV ONE (19:09)
[2017-05-26] MEDS ORDERED: NEOSTIGMINE METHYLSULFATE 10 MG/10 ML VIAL ONE (19:09)
[2017-05-26] MEDS ORDERED: ROCURONIUM BROMIDE INJ 50 MG/5 ML VIAL IV ONE (19:09)
[2017-05-26] MEDS ORDERED: DEXAMETHASONE SOD PHOSPHATE INJ 4 MG/1 ML VIAL ONE (19:09)
[2017-05-26] MEDS: NORMAL SALINE 1000 ML 1,000 ML IV PRN (20:44)
--- NOTE | 2017-05-26 20:52 | OPERATIVE REPORT E ---
Operative Report NAME: SUNNY WALLS : 1960 AGE: 56Y DATE OF SURGERY: 05/26/2017 ROOM: 528 PREOPERATIVE DIAGNOSIS: Right inguinal hernia. POSTOPERATIVE DIAGNOSIS: Direct right inguinal hernia with incarcerated preperitoneal fat. OPERATION: Repair of direct right inguinal hernia with Marlex mesh plug. SURGEON: NAJMA PURCELL M.D. ANESTHESIA: General. REPLACEMENT: Crystalloid. DRAINS: None. COMPLICATIONS: None. CONDITION: Stable. FINDINGS: The patient had previous repair of right inguinal hernia and this apparently was a recurrent right inguinal hernia. The patient was in the emergency room 48 hours prior to this visit with incarcerated hernia. The hernia was reduced and the patient was sent home; however, he continued to have pain and returned to the emergency room 48 hours later where he was found to have a tender groin, although there was no evidence of incarceration clinically. The patient is now brought to the operating room for definitive intervention. PROCEDURE: The patient was brought to the operating room suite and placed in the supine position on the operating room table. Monitoring devices were attached. Monitoring devices were attached and IV sedation was administered followed by the induction of general endotracheal anesthesia. The patient's abdomen was prepped and draped in the usual sterile manner, and then a timeout was achieved. After all concurred, an oblique incision was made in the right groin and a line drawn between the anterior and superior iliac spine and pubic tubercle. The patient had a previous right inguinal hernia and we used this previous incision site as our guide. We made an incision through the skin and subcutaneous tissue down to the [place] and [place] fascia until we reached the external oblique fascia. We noted external ring and using a ring angle clamp, we the cord and cord structures from the external ring and the external ring was opened and the external oblique fascia was exposed. We then began to dissect the scar tissue off the external oblique fascia so that we could perhaps surround the cord and cord structures when we encountered the hernial defect, which was direct inguinal hernia emanating from the floor of the inguinal canal. We noted that there was a ton of preperitoneal fat that was trapped in the hernia which explained his right groin tenderness even post-reduction 48 hours ago. We reduced the preperitoneal fat back into the peritoneal cavity and then brought through the field a small Marlex mesh plug. We secured the plug with the fascial edges that were noted around the ring, which was a meeting of the transversalis fascia. *------* the defect with the small Marlex mesh plug which was secured with 0 Prolene suture, we then approximated the external oblique fascia using 2-0 Vicryl suture continuous. The subcutaneous tissue was approximated using 3-0 Vicryl continuous suture and the skin was approximated using skin john. The patient tolerated the procedure well. Sponge and instrument counts were correct. The patient was discharged to the PACU in stable condition. DICTATING PHYSICIAN: NAJMA PURCELL M.D. [id number] PHY#: [id number] ID: [id number] JOB#: [id number] ACCT: [id number] cc:NAJMA PURCELL M.D. >
[2017-05-26] MEDS ORDERED: (PENDING PHARMACY ID) (Fluticasone/Vilanterol [Breo Ellipta 100-25 Mcg Inh] 1 EACH) IH SCH (22:00)
--- NOTE | 2017-05-27 00:11 | EKG REPORT ---
SEVERITY:- NORMAL ECG - SINUS RHYTHM : Confirmed by: Ivana Hwang 27-May-2017 00:10:58
[2017-05-27] MEDS: OXYCODONE-ACETAMINOPHEN 5-325 MG TABLET PO PRN ×3 (02:51→09:35)
[2017-05-27] MEDS: NORMAL SALINE 1000 ML 1,000 ML IV PRN (06:41)
--- NOTE | 2017-05-27 08:42 | DISCHARGE SUMMARY E ---
Discharge Summary NAME: SUNNY WALLS : 1960 AGE: 56Y ADMITTED: 05/26/2017 DISCHARGED: 05/27/2017 FINAL DIAGNOSIS: Status post repair of recurrent right inguinal hernia. This 56-year-old male presented to the emergency room complaining of right groin pain. The patient had been seen 48 hours later in the emergency room, where he was found to have an incarcerated right inguinal hernia. The patient underwent reduction of the hernia in the ER and was sent home and was supposed to make an appointment to be seen in [facility] on 05/26/2017. However, on 05/25/2017, 48 hours later, the patient presented back to the emergency room because of the right groin pain. On exam, he was found to have right inguinal tenderness, although there was no evidence of incarceration clinically. The patient was admitted to the hospital and taken to the operating room on 05/26/2017 where he underwent repair of his recurrent right inguinal hernia. The patient was noted to have a piece of preperitoneal fat that was incarcerated in the hernial defect which was reduced and the repair was done with a small Marlex mesh plug. The patient's postoperative course was uneventful. His right groin pain was incisional only. He is tolerating his diet and is doing quite well and feels much better. The patient is now discharged home on Percocet 5 mg p.o. every 4 hours. He has been advised to avoid heavy lifting, pulling or pushing and will be seen in the [facility] in 7 to 10 days. DICTATING PHYSICIAN: NAJMA PURCELL M.D. [id number] PHY#: [id number] ID: [id number] JOB#: [id number] ACCT: [id number] cc:Anila MANDUJANO PA >
[2017-05-27 09:29] VITALS: BP 144/73
[2017-05-27] MEDS: TIOTROPIUM BROMIDE DPI 5 CAP/KIT (18 MCG/CAP) IH SCH (09:34)
[2017-05-27] MEDS: NICOTINE 21 MG/24 HR PATCH.TD24 TD SCH (09:34)
[2017-05-27] MEDS: PREDNISONE 20 MG TABLET PO SCH (09:36)
[2017-05-29] MEDS ORDERED: PREDNISONE 20 MG TABLET PO SCH (10:00)
[2017-06-01] MEDS ORDERED: PREDNISONE 20 MG TABLET PO SCH (10:00)
== END 2017-05-27 10:07 | disposition home or self-care (01) ==
LOC: ER 19:37 → UNDOADMOB 23:33 → EH 23:33 → INTOOBSV 23:33 → 5 05-26 00:33 → EH 05-26 00:33 → 5 05-26 01:32 → EH 05-26 01:32
PROVIDERS: ATTEND Surgery
PROC: 0YU50JZ Supplement Right Inguinal Region with Synthetic Substitute, Open Approach (ICD-10-PCS; principal; 2017-05-26 16:15)
DX: K40.31 Unilateral inguinal hernia, with obstruction, without gangrene, recurrent (principal); E66.9 Obesity, unspecified; Z68.31 Body mass index [BMI] 31.0-31.9, adult; M19.90 Unspecified osteoarthritis, unspecified site; J44.9 Chronic obstructive pulmonary disease, unspecified; Z96.643 Presence of artificial hip joint, bilateral; Z98.890 Other specified postprocedural states
CPT/HCPCS: 49521; 99285; 36415; 83605; 85025; 80053; 81001; 71020; 93005; 93010; G0378 ×2; C1781; J2250; J0690; J3490 ×3; J1100; J1200; J1885; J3010 ×2; J2001; J2765; J2270; A9270 ×3; J2405 ×2; J7030 ×3; J2704; J0131; 830; J7512

== ENCOUNTER 2017-06-01 21:29 | Emergency (ER) | payer MEDICARE ==
--- NOTE | 2017-06-01 22:58 | ER Document Report ---
ED General - General Chief Complaint: Abdominal Pain Stated Complaint: ABDOMINAL PAIN Time Seen by Provider: 06/01/17 22:32 Mode of Arrival: Ambulatory Information source: Patient Notes: 56-year-old male who had a hernia right inguinal chronic repaired 1 week ago presents with complaints of standing and feeling a popping sensation. Patient denies any fevers or chills notes he has had difficulty with bowel movements since the surgery TRAVEL OUTSIDE OF THE [place] IN LAST 30 DAYS: No - HPI Onset: Just prior to arrival Onset/Duration: Sudden Quality of pain: Achy Severity: Mild Pain Level: 1 Associated symptoms: Other Exacerbated by: Denies Relieved by: Denies Similar symptoms previously: No Recently seen / treated by doctor: Yes - Related Data Allergies/Adverse Reactions: sulfamethoxazole [From Bactrim] Allergy (Mild, Verified 06/01/17 22:04) Generalized Itching trimethoprim [From Bactrim] Allergy (Mild, Verified 06/01/17 22:04) Generalized Itching latex Allergy (Verified 06/01/17 22:04) morphine Allergy (Verified 06/01/17 22:04) Generalized Itching Past Medical History - Social History Smoking Status: Never Smoker Cigarette use (# per day): No Chew tobacco use (# tins/day): No Smoking Education Provided: No Family History: Reviewed & Not Pertinent, CAD, Malignancy Patient has suicidal ideation: No Patient has homicidal ideation: No - Past Medical History Cardiac Medical History: Reports: Hx Hypertension Pulmonary Medical History: Reports: Hx COPD Renal/ Medical History: Denies: Hx Peritoneal Dialysis Musculoskeltal Medical History: Reports Hx Arthritis Psychiatric Medical History: Reports: Hx Depression Past Surgical History: Reports: Hx Abdominal Surgery - umbilical hernia, Hx Orthopedic Surgery - Bilat hip replacements March and april 2014 - Immunizations Hx Diphtheria, Pertussis, Tetanus Vaccination: Yes Hx Pneumococcal Vaccination: 06/04/14 Review of Systems - Review of Systems Notes: REVIEW OF SYSTEMS: CONSTITUTIONAL : Denies fever, chills, or sweats. Denies recent illness. EENT: Denies eye, ear, throat, or mouth pain or symptoms. Denies nasal or sinus congestion or discharge. Denies throat, tongue, or mouth swelling or difficulty swallowing. CARDIOVASCULAR: Denies chest pain. Denies palpitations or racing or irregular heart beat. Denies ankle edema. RESPIRATORY: Denies cough, cold, or chest congestion. Denies shortness of breath, difficulty breathing, or wheezing. GASTROINTESTINAL: Right inguinal pain GENITOURINARY: Denies difficulty urinating, painful urination, burning, frequency, blood in urine, or discharge. MUSCULOSKELETAL: Denies back or neck pain or stiffness. Denies joint pain or swelling. SKIN: Denies rash, lesions or sores. HEMATOLOGIC : Denies easy bruising or bleeding. LYMPHATIC: Denies swollen, enlarged glands. NEUROLOGICAL: Denies confusion or altered mental status. Denies passing out or loss of consciousness. Denies dizziness or lightheadedness. Denies headache. Denies weakness or paralysis or loss of use of either side. Denies problems with gait or speech. Denies sensory loss, numbness, or tingling. Denies seizures. PSYCHIATRIC: Denies anxiety or stress. Denies depression, suicidal ideation, or homicidal ideation. ALL OTHER SYSTEMS REVIEWED AND NEGATIVE. Dictation was performed using [employer] voice recognition software PHYSICAL EXAMINATION: GENERAL: Well-appearing, well-nourished and in no acute distress. HEAD: Atraumatic, normocephalic. EYES: Pupils equal round and reactive to light, extraocular movements intact, sclera anicteric, conjunctiva are normal. ENT: Nares patent, oropharynx clear without exudates. Moist mucous membranes. NECK: Normal range of motion, supple without lymphadenopathy LUNGS: Breath sounds clear to auscultation bilaterally and equal. No wheezes rales or rhonchi. HEART: Regular rate and rhythm without murmurs ABDOMEN: Soft, nontender, nondistended abdomen. No guarding, no rebound. No masses appreciated. Musculoskeletal: Normal range of motion, no pitting or edema. No cyanosis. NEUROLOGICAL: Cranial nerves grossly intact. Normal speech, normal gait. Normal sensory, motor exams PSYCH: Normal mood, normal affect. SKIN: Warm, Dry, normal turgor, no rashes or lesions noted. Physical Exam - Vital signs Vitals: Temp Pulse Resp BP Pulse Ox 98.8 F 91 19 143/78 H 95 06/01/17 22:04 06/01/17 22:04 06/01/17 22:04 06/01/17 22:04 06/01/17 22:04 Course - Re-evaluation Re-evalutation: 06/01/17 22:[address] Briones, he is very aware of the patient, will perform a ct, but otherwise patient looks well. 06/02/17 01:01 CT is consistent with a seroma otherwise looks well, rectal examination is irritation around the anus patient notes he is actually had nonstop diarrhea as well, he will be treated with lidocaine and nystatin After performing a Medical Screening Examination, I estimate there is LOW risk for ACUTE APPENDICITIS, BOWEL OBSTRUCTION, ACUTE CHOLECYSTITIS, PERFORATED DIVERTICULITIS, INCARCERATED HERNIA, PANCREATITIS, or PERFORATED ULCER, thus I consider the discharge disposition reasonable. Also, there is no evidence or peritonitis, sepsis, or toxicity. I have reevaluated this patient multiple times and no significant life threatening changes are noted. The patient and I have discussed the diagnosis and risks, and we agree with discharging home with close follow-up with the understanding that symptoms and presentations can change. We also discussed returning to the Emergency Department immediately if new or worsening symptoms occur. We have discussed the symptoms which are most concerning (e.g., bloody stool, fever, changing or worsening pain, intractable vomiting - standard verbal up date) that necessitate immediate return. - Vital Signs Vital signs: Temp Pulse Resp BP Pulse Ox 98.8 F 91 19 143/78 H 95 06/01/17 22:04 06/01/17 22:04 06/01/17 22:04 06/01/17 22:04 06/01/17 22:04 - Diagnostic Test Radiology reviewed: Image reviewed, Reports reviewed Discharge - Discharge Clinical Impression: post op seroma abdomen, Rectal pain Condition: Stable Disposition: HOME, SELF-CARE Instructions: Abdominal Pain ([facility]) Prescriptions: Lidocaine 15 gm TP ASDIR PRN #1 cream..g. PRN Reason: Nystatin [Mycostatin Topical Powder 15 gm] 1 applic TP BID #1 bottle Oxycodone HCl/Acetaminophen [Percocet 5-325 mg Tablet] 1 - 2 tab PO Q4H PRN #10 tablet PRN Reason: Referrals: VIC MENDEZ MD [ACTIVE STAFF] - Follow up in 3-5 days
--- NOTE | 2017-06-01 23:55 | RADIOLOGY REPORT (SQ) ---
EXAM DESCRIPTION: CT ABD/PELVIS NO ORAL OR IV COMPLETED DATE/TIME: 06/01/2017 11:13 pm REASON FOR STUDY: post right inguinal hernia repair pain COMPARISON: None. TECHNIQUE: CT scan of the abdomen and pelvis performed without intravenous or oral contrast. Images reviewed with lung, soft tissue, and bone windows. Reconstructed coronal and sagittal MPR images revi ewed. All images stored on PACS. All CT scanners at this facility use dose modulation, iterative reconstruction, and/or weight based d osing when appropriate to reduce radiation dose to as low as reasonably achievable (ALARA). [facility]: Dose Right [facility]: CareDose [facility]: Dose Right [facility]: Teradose 4D [facility]: Smart Curalate RADIATION DOSE: Up-to-date CT equipment and radiation dose reduction techniques were employed. CTDIv ol: 20.2 mGy. DLP: 1062 mGy-cm.mGy. LIMITATIONS: None. FINDINGS: LOWER CHEST: No significant findings. No nodules or infiltrates. NON-CONTRASTED LIVER, SPLEEN, ADRENALS: Evaluation limited by lack of IV contrast. No identified sign ificant masses. PANCREAS: No masses. No peripancreatic inflammatory changes. GALLBLADDER: No identified stones by CT criteria. No inflammatory changes to suggest cholecystitis. RIGHT KIDNEY AND URETER: No suspicious masses. Assessment limited by lack of IV contrast. No signif icant calcifications. No hydronephrosis or hydroureter. LEFT KIDNEY AND URETER: No suspicious masses. Assessment limited by lack of IV contrast. No signifi cant calcifications. No hydronephrosis or hydroureter. AORTA AND RETROPERITONEUM: No aneurysm. No retroperitoneal masses or adenopathy. BOWEL AND PERITONEAL CAVITY: No obvious masses or inflammatory changes. No free fluid. APPENDIX: Normal. PELVIS, BLADDER, AND ABDOMINAL WALL:5 x 2.8 x 2.1 cm seroma in the right inguinal region with strandi ng in the subcutaneous fat in the right abdominal wall consistent with postprocedural changes from he rnia repair. Bladder normal. BONES: No significant findings. OTHER: No other significant finding. IMPRESSION: 5 x 2.8 x 2.1 cm seroma in the right inguinal region with stranding in the subcutaneous fat in the right abdominal wall consistent with postprocedural changes from hernia repair. Exclude i nfection clinically. No inflammatory changes in the intra-abdominal -pelvic soft tissues COMMENT: Quality ID # [id number]: Final reports with documentation of one or more dose reduction techniques (e.g., Automated exposure control, adjustment of the mA and/or kV according to patient size, use of iterative reconstruction technique) TECHNICAL DOCUMENTATION: JOB ID: [id number] [employer]- All Rights Reserved
[2017-06-02] MEDS ORDERED: HYDROCODONE/ACETAMINOPHEN 5-325 MG TABLET PO ONE (00:04)
[2017-06-02 01:24] VITALS: BP 126/84
== END 2017-06-02 01:20 | disposition home or self-care (01) ==
LOC: ER 21:29
DX: L76.34 Postprocedural seroma of skin and subcutaneous tissue following other procedure (principal); K62.89 Other specified diseases of anus and rectum; R10.9 Unspecified abdominal pain
CPT/HCPCS: 99284; 74176; A9270

== ENCOUNTER 2017-06-12 04:02 | Emergency (ER) | payer MEDICARE ==
[2017-06-12] MEDS ORDERED: FENTANYL CITRATE INJ/PF 100 MCG/2 ML AMPUL IV ONE ×2 (04:39→06:46)
[2017-06-12] MEDS ORDERED: ONDANSETRON HCL INJ/PF 4 MG/2 ML SDV IV ONE (04:40)
--- NOTE | 2017-06-12 04:43 | ER Document Report ---
ED Wound - General TRAVEL OUTSIDE OF THE [place] IN LAST 30 DAYS: No <COLLEEN BAUMAN - Last Filed: 06/12/17 06:21> <KAM HERNANDEZ - Last Filed: 06/12/17 08:03> - General Chief Complaint: Post Surgical Bleeding Stated Complaint: POST SURGICAL SIDE PAIN Time Seen by Provider: 06/12/17 04:33 Notes: Patient is a 56-year-old male who comes to the emergency department for chief complaint of a painful wound in his right lower abdomen, he is postop from 2016 when he had a inguinal hernia repair by Dr. Briones at this facility, he has followed up with outpatient, he states he had a CAT scan and they said there was "fluid in the area". He states this morning it became more painful, awoke him from sleep, and made him nauseated. He states it bled some but he denies purulent discharge. He denies fever. He states he was seen a few days ago at the surgical clinic and she placed him on an antibiotic but he is not sure which antibiotic he is on. PMH of smoking and COPD. He is not on a blood thinner. (COLLEEN BAUMAN) - Related Data Allergies/Adverse Reactions: sulfamethoxazole [From Bactrim] Allergy (Mild, Verified 06/12/17 04:06) Generalized Itching trimethoprim [From Bactrim] Allergy (Mild, Verified 06/12/17 04:06) Generalized Itching latex Allergy (Verified 06/12/17 04:06) morphine Allergy (Verified 06/12/17 04:06) Generalized Itching Past Medical History - General Information source: Patient - Social History Smoking Status: Current Every Day Smoker Drug Abuse: None Lives with: Family Family History: Reviewed & Not Pertinent, CAD, Malignancy Patient has suicidal ideation: No Patient has homicidal ideation: No - Past Medical History Cardiac Medical History: Reports: Hx Hypertension Pulmonary Medical History: Reports: Hx COPD Renal/ Medical History: Denies: Hx Peritoneal Dialysis Musculoskeltal Medical History: Reports Hx Arthritis Psychiatric Medical History: Reports: Hx Depression Past Surgical History: Reports: Hx Abdominal Surgery - umbilical hernia, Hx Orthopedic Surgery - Bilat hip replacements March and april 2014 - Immunizations Hx Diphtheria, Pertussis, Tetanus Vaccination: Yes Hx Pneumococcal Vaccination: 06/04/14 <COLLEEN BAUMAN - Last Filed: 06/12/17 06:21> Review of Systems - Review of Systems Constitutional: No symptoms reported EENT: No symptoms reported Cardiovascular: No symptoms reported Respiratory: No symptoms reported Gastrointestinal: See HPI Genitourinary: No symptoms reported Male Genitourinary: No symptoms reported Musculoskeletal: No symptoms reported Skin: See HPI Hematologic/Lymphatic: No symptoms reported Neurological/Psychological: No symptoms reported <JAKESONNYCOLLEEN - Last Filed: 06/12/17 06:21> Physical Exam - Vital signs Interpretation: Normal - General General appearance: Appears well In distress: None - HEENT Head: Normocephalic, Atraumatic Eyes: Normal Pupils: PERRL - Respiratory Respiratory status: No respiratory distress Chest status: Nontender Breath sounds: Normal. No: Decreased air movement, Wheezing Chest palpation: Normal - Cardiovascular Rhythm: Regular. No: Tachycardia Heart sounds: Normal auscultation, S1 appreciated, S2 appreciated Murmur: No - Abdominal Inspection: Normal Distension: No distension Bowel sounds: Normal Tenderness: Nontender. No: Tender, Guarding Organomegaly: No organomegaly - Back Back: Normal, Nontender. No: Tender - Extremities General upper extremity: Normal inspection, Nontender, Normal ROM, Normal strength General lower extremity: Normal inspection, Nontender, Normal ROM, Normal strength - Neurological Neuro grossly intact: Yes Cognition: Normal Orientation: AAOx4 Clar[place] Coma Scale Eye Opening: Spontaneous [place] Coma Scale Verbal: Oriented Ely Coma Scale Motor: Obeys Commands Clar[place] Coma Scale Total: 15 Speech: Normal Motor strength normal: LUE, RUE, LLE, RLE Sensory: Normal - Psychological Associated symptoms: Normal affect, Normal mood - Skin Skin Temperature: Warm Skin Moisture: Dry Skin Color: Normal Irregularity with: Other - There is a linear wound in the right lower abdomen at the inguinal groove with john in place, it appears a few of the john have been removed, along the lateral border there is some elevation of the wound , there is erythema of the wound, no purulent drainage or odor, no bleeding, no overt induration or fluctuance. <JAKESONNYCOLLEEN - Last Filed: 06/12/17 06:21> - Vital signs Vitals: Temp Pulse Resp BP Pulse Ox 97.7 F 93 20 146/103 H 96 06/12/17 04:05 06/12/17 04:05 06/12/17 04:05 06/12/17 04:05 06/12/17 04:05 Course - Laboratory Result Diagrams: 06/12/17 05:15 06/12/17 05:15 <COLLEEN BAUMAN - Last Filed: 06/12/17 06:21> - Laboratory Result Diagrams: 06/12/17 05:15 06/12/17 05:15 <KAM HERNANDEZ - Last Filed: 06/12/17 08:03> - Re-evaluation Re-evalutation: Patient had a recent CAT scan of the area and this showed a seroma. Examination is consistent with a seroma and also an area where the john were removed in recent office visit, the area is mildly tender, somewhat erythematous , no purulent discharge or foul odor, patient is not tachycardic or febrile. He states that the pain today is making him nauseated and the pain has increased. CBC and basic chemistry are both unremarkable. (COLLEEN BAUMAN) 06/12/17 08:00 dr. owen saw the pt in the room, confirmed the seroma with US, and drained it at the bedside, removed the john. Pt to follow up with Tiarra BEAL at the office in 2 weeks. pt wants a few pain pills prescription. 06/12/17 08:01 (KAM HERNANDEZ) - Vital Signs Vital signs: Temp Pulse Resp BP Pulse Ox 97.7 F 93 20 146/103 H 96 06/12/17 04:05 06/12/17 04:05 06/12/17 04:05 06/12/17 04:05 06/12/17 04:05 - Laboratory Laboratory results interpreted by me: 06/12/17 05:15 RDW 15.1 H Discharge <COLLEEN ABUMAN - Last Filed: 06/12/17 06:21> <KAM HERNANDEZ - Last Filed: 06/12/17 08:03> - Discharge Clinical Impression: drained seroma Condition: Good Disposition: HOME, SELF-CARE Instructions: Dressing Instructions for Open Wounds ([facility]) Additional Instructions: dry dressing call and cancel your appt today, and reschedule for Rhianna BEAL in 2 weeks at the office to er any concerns of fever, swelling, increased pain Please complete the patient satisfaction survey if you get one, and return it.. If you do not receive a survey, then you can go to the [facility] website, [email or web address] and place your comments about your very good care. Thank you very much. It was a pleasure being your medical provider today. Prescriptions: Hydrocodone Bit/Acetaminophen [Hydrocodon-Acetaminophen 5-325] 1 each PO Q4HP PRN #10 tablet PRN Reason:
[2017-06-12 05:27] LABS: ABSOLUTE BASOPHILS # (AUTO) 0.1 10^3/uL (0.0-0.2); ABSOLUTE EOSINOPHILS # (AUTO) 0.4 10^3/uL (0.0-0.6); ABSOLUTE LYMPHOCYTES (AUTO) 2.1 10^3/uL (0.5-4.7); ABSOLUTE MONOCYTES (AUTO) 0.6 10^3/uL (0.1-1.4); ABSOLUTE NEUT (AUTO) 5.3 10^3/uL (1.7-8.2); BASOPHILS % (AUTO) 0.7 % (0-2); EOSINOPHILS % (AUTO) 4.7 % (0-6); HEMATOCRIT 43.5 % (37.9-51.0); HEMOGLOBIN 14.7 g/dL (13.5-17.0); HGB HCT DIFFERENCE 0.6; LYMPHOCYTES % (AUTO) 24.7 % (13-45); MEAN CORPUSCULAR HEMOGLOBIN 32.6 pg (27.0-33.4); MEAN CORPUSCULAR HGB CONC 33.8 g/dL (32.0-36.0); MEAN CORPUSCULAR VOLUME 97 fl (80-97); MONOCYTES % (AUTO) 7.6 % (3-13); RED BLOOD COUNT 4.51 10^6/uL (4.35-5.55); RED CELL DISTRIBUTION WIDTH 15.1 % (11.5-14.0); SEGMENTED NEUTROPHILS % (AUTO) 62.3 % (42-78); WHITE BLOOD COUNT 8.5 10^3/uL (4.0-10.5)
[2017-06-12 05:43] LABS: ANION GAP 9 (5-19); BLOOD UREA NITROGEN 10 mg/dL (7-20); CALCIUM 9.5 mg/dL (8.4-10.2); CARBON DIOXIDE 30 mmol/L (22-30); CHLORIDE 102 mmol/L (98-107); CREATININE RESULT 0.74 mg/dL (0.52-1.25); GLUCOSE 95 mg/dL (75-110); POTASSIUM 4.4 mmol/L (3.6-5.0); SODIUM 141.4 mmol/L (137-145)
[2017-06-12 08:25] VITALS: BP 134/82
--- NOTE | 2017-06-12 09:03 | OPERATIVE REPORT E ---
Operative Report NAME: SUNNY WALLS : 1960 AGE: 56Y DATE OF SURGERY: 06/12/2017 ROOM: PREOPERATIVE DIAGNOSIS: Postoperative pain and fullness, lateral aspect of right inguinal herniorrhaphy incision. POSTOPERATIVE DIAGNOSIS: Postoperative seroma. PROCEDURES: 1. Focused ultrasound of the right groin. 2. Ultrasound-directed drainage of postoperative seroma right inguinal area. SURGEON: VIC MENDEZ M.D. ANESTHESIA: None. DRAINS: None. TISSUE REMOVED OR ALTERED: Seroma. COMPLICATIONS: None. INDICATIONS FOR PROCEDURE: The patient is a 56-year-old white male, smoker, approximately 3 weeks status post right inguinal herniorrhaphy, open, by Dr. Nik Briones. Patient has had postoperative swelling and erythema at his incision site for the last several weeks. He was started on p.o. antibiotics by [facility] 1 week ago. Patient returns to the emergency department for the second time in 1 week complaining of pain. He has been taking his p.o. antibiotics. He denies fever. In the emergency department, his white blood cell count is not elevated. Surgery is consulted. On physical exam, patient has erythema at the incision site. There is erythema around the john. All ojhn are removed by Dr. Mendez. We are unable to open the incision by traction. Focused ultrasound of the right inguinal area performed by Dr. Menedz. There is a hypoechoic fullness in the deep subcutaneous tissue under the lateral aspect of the incision. The findings are consistent with a seroma. A Q-tip was used to pry open a small opening in the incision line. We evacuated approximately 100 mL of serous fluid. Dry dressing applied. PLAN: Supportive care, dry 4 x 4s as needed. Patient to follow up at [facility] in approximately 2 weeks. DICTATING PHYSICIAN: VIC MENDEZ M.D. [id number] PHY#: [id number] ID: [id number] JOB#: [id number] ACCT: [id number] cc:VIC MENDEZ M.D. >
== END 2017-06-12 08:10 | disposition home or self-care (01) ==
LOC: ER 04:02
DX: S30.1XXA Contusion of abdominal wall, initial encounter (principal); G89.18 Other acute postprocedural pain; R10.31 Right lower quadrant pain; F17.200 Nicotine dependence, unspecified, uncomplicated; X58.XXXA Exposure to other specified factors, initial encounter
CPT/HCPCS: 96376; 99284; 96374; 96375; J3010; J2405; 36415; 80048; 85025

== ENCOUNTER 2017-06-13 07:27 | Inpatient (IN) | payer MEDICARE ==
[2017-06-13] MEDS ORDERED: SUCCINYLCHOLINE CHLORIDE INJ 200 MG/10 ML VIAL ONE (07:49)
[2017-06-13] MEDS ORDERED: HYDROCODONE/ACETAMINOPHEN 5-325 MG TABLET PO ONE (08:05)
--- NOTE | 2017-06-13 08:15 | ER Document Report ---
ED General - General Chief Complaint: Post Surgical Pain Stated Complaint: POST OP CONCERN Time Seen by Provider: 06/13/17 07:48 Notes: Patient is a 56-year-old male who returns to the emergency department for chief complaint of a painful wound in his right lower abdomen he is postop from 2016 when he had a inguinal hernia repair by Dr. Briones at this facility. Was evaluated here yesterday and was diagnosed with a seroma with overlying cellulitis. This was drained in the ED using blunt dissection for 100mL, no evidence of purulent material. This has since healed shut and reaccumulation of fluid is now causing his pain. He states this morning it became more painful, awoke him from sleep, and made him nauseated. He states it bled some but he denies purulent discharge. He denies fever. He states he was seen a few days ago at the surgical clinic and she placed him on an antibiotic but he is not sure which antibiotic he is on. PMH of smoking and COPD. He is not on a blood thinner. TRAVEL OUTSIDE OF THE [place] IN LAST 30 DAYS: No - Related Data Allergies/Adverse Reactions: sulfamethoxazole [From Bactrim] Allergy (Mild, Verified 06/13/17 07:32) Generalized Itching trimethoprim [From Bactrim] Allergy (Mild, Verified 06/13/17 07:32) Generalized Itching latex Allergy (Verified 06/13/17 07:32) morphine Allergy (Verified 06/13/17 07:32) Generalized Itching Home Medications: Current Home Medications Gabapentin [Neurontin] 300 mg PO Q8HP PRN 06/13/17 [History] Past Medical History - Social History Smoking Status: Never Smoker Family History: Reviewed & Not Pertinent, CAD, Malignancy - Past Medical History Cardiac Medical History: Reports: Hx Hypertension Pulmonary Medical History: Reports: Hx COPD Renal/ Medical History: Denies: Hx Peritoneal Dialysis Musculoskeltal Medical History: Reports Hx Arthritis Psychiatric Medical History: Reports: Hx Depression Past Surgical History: Reports: Hx Abdominal Surgery - umbilical hernia, Hx Orthopedic Surgery - Bilat hip replacements March and april 2014 - Immunizations Hx Diphtheria, Pertussis, Tetanus Vaccination: Yes Hx Pneumococcal Vaccination: 06/04/14 Review of Systems - Review of Systems Constitutional: No symptoms reported Cardiovascular: No symptoms reported Respiratory: No symptoms reported Gastrointestinal: No symptoms reported Skin: See HPI -: Yes All other systems reviewed and negative Physical Exam - Vital signs Vitals: Temp Pulse Resp BP Pulse Ox 99.0 F 109 H 18 139/78 H 92 06/13/17 07:28 06/13/17 07:28 06/13/17 07:28 06/13/17 07:28 06/13/17 07:28 - Notes Notes: PHYSICAL EXAM GENERAL: Alert, interacts well. LUNGS: Clear to auscultation bilaterally, no wheezes, rales, or rhonchi. No respiratory distress. HEART: Regular rate and rhythm. No murmurs, gallops, or rubs. ABDOMEN: Soft, nondistended, nontender. No guarding, rebound, or rigidity.. Bowel sounds present in all 4 quadrants. EXTREMITIES: Moves all 4 extremities spontaneously. No edema, radial and dorsalis pedis pulses 2/4 bilaterally. No cyanosis. NEUROLOGICAL: Alert and oriented x4. Normal speech. PSYCH: Normal affect, normal mood. - Skin Skin Temperature: Hot Skin Moisture: Dry Skin Color: Erythema Skin Turgor: Edematous Skin irregularity: Tender indurated area - overlying the lateral third of the right inguinal incision Location of irregularity: Other - groin Irregularity with: Swelling, Tenderness, Warmth, Induration, Well defined border Course - Re-evaluation Re-evalutation: 06/13/17 10:30 Patient is a 48-year-old male who is hemodynamically stable, no acute distress afebrile. Evaluation is concerning for reaccumulation of seroma but patient has not tolerated outpatient antibiotics regarding overlying cellulitis. Concern for developing abscess given recent procedure yesterday. Evaluation with Dr. Redd at the bedside recommends patient be admitted for IV antibiotics and possible I&D. Patient is agreeable with plan. - Vital Signs Vital signs: Temp Pulse Resp BP Pulse Ox 98.6 F 89 16 114/56 L 94 06/13/17 18:30 06/13/17 18:45 06/13/17 18:45 06/13/17 18:45 06/13/17 18:45 - Laboratory Result Diagrams: 06/13/17 10:40 06/13/17 10:40 Laboratory results interpreted by me: 06/13/17 06/13/17 10:40 10:40 WBC 19.5 H D RDW 15.1 H Seg Neutrophils % 87.4 H Lymphocytes % 5.7 L Absolute Neutrophils 17.1 H Sodium 135.6 L Discharge - Discharge Clinical Impression: Cellulitis, wound, post-operative Qualifiers: Encounter type: initial encounter Qualified Code(s): T81.4XXA - Infection following a procedure, initial encounter Condition: Stable Disposition: ADMITTED INPATIENT Admitting Provider: Surgicalist - [facility] Admitted: Surgical Floor
[2017-06-13] MEDS ORDERED: LIDOCAINE 1% INJ-PF (10 MG/ML) 30 ML SDV INJ ONE (08:17)
[2017-06-13] MEDS ORDERED: CLINDAMYCIN 600 MG/D5W RTU 600 MG/50 ML RTUPB IV ONE (10:37)
[2017-06-13] MEDS ORDERED: HYDROMORPHONE HCL INJ/PF 2 MG/ML AMPULE IV ONE (10:37)
[2017-06-13 11:09] LABS: ABSOLUTE EOSINOPHILS # (AUTO) 0.1 10^3/uL (0.0-0.6); ABSOLUTE LYMPHOCYTES (AUTO) 1.1 10^3/uL (0.5-4.7); ABSOLUTE MONOCYTES (AUTO) 1.2 10^3/uL (0.1-1.4); ABSOLUTE NEUT (AUTO) 17.1 10^3/uL (1.7-8.2); BASOPHILS % (AUTO) 0.2 % (0-2); EOSINOPHILS % (AUTO) 0.4 % (0-6); HEMATOCRIT 43.2 % (37.9-51.0); HEMOGLOBIN 14.6 g/dL (13.5-17.0); HGB HCT DIFFERENCE 0.6; LYMPHOCYTES % (AUTO) 5.7 % (13-45); MEAN CORPUSCULAR HEMOGLOBIN 32.4 pg (27.0-33.4); MEAN CORPUSCULAR HGB CONC 33.9 g/dL (32.0-36.0); MEAN CORPUSCULAR VOLUME 96 fl (80-97); MONOCYTES % (AUTO) 6.3 % (3-13); RED BLOOD COUNT 4.52 10^6/uL (4.35-5.55); RED CELL DISTRIBUTION WIDTH 15.1 % (11.5-14.0); SEGMENTED NEUTROPHILS % (AUTO) 87.4 % (42-78)
[2017-06-13 11:17] LABS: WHITE BLOOD COUNT 19.5 10^3/uL (4.0-10.5)
--- NOTE | 2017-06-13 11:22 | HISTORY AND PHYSICAL E ---
History and Physical NAME: SUNNY WALLS : 1960 AGE: 56Y ADMITTED: 06/13/2017 ROOM: ED11 CHIEF COMPLAINT: Right inguinal pains at the inguinal hernia repair site. HISTORY OF PRESENT ILLNESS: This is a 56-year-old male who had repair of incarcerated right inguinal hernia on 05/26/[address] Briones. This was actually a recurrent right inguinal hernia. Postoperatively, he was seen in the clinic yesterday by Dr. Waite and then yesterday in the emergency room. Yesterday, noted to have seroma and aspirated about 100 mL of serous [id number]-ghudhdds fluid. Today, the patient came back to the emergency room with more pains and redness along the inguinal incision site. He denies any fever. He had a CBC done yesterday, which showed a white count of 8.5 with 93% *------* and 13.9% neutrophils. His temperature this morning is 99 degrees Fahrenheit. PAST SURGICAL HISTORY: 1. Previous right inguinal hernia repair. 2. History of bilateral hip replacement in March and April of 2014. PAST MEDICAL HISTORY: 1. Hypertension. 2. COPD. 3. History of arthritis. 4. History of depression. ALLERGIES: 1. BACTRIM. 2. LATEX. 3. MORPHINE. FAMILY HISTORY: No history of bleeding in the family. No history of cardiac, renal, stroke, or diabetes. SOCIAL HISTORY: The patient still smokes about half a pack a day, but used to smoke more than a pack a day in the past. Denies alcohol or recreational drug use. REVIEW OF SYSTEMS: Denies any cough, shortness of breath, diarrhea, constipation, or dysuria. No headaches, hearing, or visual problems. Denies any chest pains. Complaining of pains along the right groin. Pain is not relieved with p.o. Percocet. No history of seizures. No easy bruisability or lymph node enlargement. PHYSICAL EXAMINATION: GENERAL: Well-developed, well-nourished 56-year-old male, alert and oriented, complaining of right groin pains. NECK: Supple. No thyromegaly. LUNGS: Clear. HEART: Regular sinus rhythm. ABDOMEN: Soft. The right groin has erythema and the lateral swelling that is markedly tender. No drainage. EXTREMITIES: No edema. IMPRESSION: 1. Cellulitis of the right inguinal hernia incision site. 2. History of COPD. 3. Hypertension. PLANS: 1. Start IV antibiotic therapy. 2. May need to have the wound opened up and may need to remove the mesh. DICTATING PHYSICIAN: RUDI CASTELLANOS M.D. [id number] PHY#: [id number] ID: [id number] JOB#: [id number] ACCT: [id number] cc:RUDI CASTELLANOS M.D. >
[2017-06-13 11:31] LABS: ALANINE AMINOTRANSFERASE 26 U/L (21-72); ALBUMIN 4.4 g/dL (3.5-5.0); ALKALINE PHOSPHATASE 81 U/L (38-126); ANION GAP 12 (5-19); ASPARTATE AMINO TRANSFERASE 21 U/L (17-59); BILIRUBIN,DIRECT 0.4 mg/dL (0.0-0.4); BILIRUBIN,TOTAL 0.7 mg/dL (0.2-1.3); BLOOD UREA NITROGEN 14 mg/dL (7-20); CALCIUM 9.4 mg/dL (8.4-10.2); CARBON DIOXIDE 26 mmol/L (22-30); CHLORIDE 98 mmol/L (98-107); CREATININE RESULT 0.85 mg/dL (0.52-1.25); GLUCOSE 109 mg/dL (75-110); POTASSIUM 4.1 mmol/L (3.6-5.0); SODIUM 135.6 mmol/L (137-145); TOTAL PROTEIN 7.4 g/dL (6.3-8.2)
[2017-06-13] MEDS ORDERED: NORMAL SALINE 1000 ML 1,000 ML IV PRN (11:42)
[2017-06-13] MEDS: HYDROMORPHONE HCL INJ/PF 2 MG/ML AMPULE IV PRN ×4 (13:25→23:48)
[2017-06-13] MEDS ORDERED: NICOTINE 21 MG/24 HR PATCH.TD24 TD SCH (15:00)
[2017-06-13] MEDS: CLINDAMYCIN 600 MG/D5W RTU 600 MG/50 ML RTUPB IV SCH ×2 (15:08→22:25)
--- NOTE | 2017-06-13 15:59 | RADIOLOGY REPORT (SQ) ---
EXAM DESCRIPTION: CHEST SINGLE VIEW COMPLETED DATE/TIME: 06/13/2017 3:23 pm REASON FOR STUDY: preop for surgery today COMPARISON: 05/26/2017 EXAM PARAMETERS: NUMBER OF VIEWS: One view. TECHNIQUE: Single frontal radiographic view of the chest acquired. RADIATION DOSE: NA LIMITATIONS: None. FINDINGS: LUNGS AND PLEURA: Mild chronic interstitial changes are present. There is no acute infilt rate or pleural effusion. There is no mass. MEDIASTINUM AND HILAR STRUCTURES: No masses. Contour normal. HEART AND VASCULAR STRUCTURES: Heart normal in size. Normal vasculature. BONES: No acute findings. HARDWARE: None in the chest. OTHER: No other significant finding. IMPRESSION: Mild chronic lung changes with no acute cardiopulmonary disease. TECHNICAL DOCUMENTATION: JOB ID: [id number]
[2017-06-13] MEDS ORDERED: MIDAZOLAM 2 MG/2 ML INJ ONE (16:53)
[2017-06-13] MEDS ORDERED: ONDANSETRON HCL INJ/PF 4 MG/2 ML SDV ONE (16:53)
[2017-06-13] MEDS ORDERED: DEXAMETHASONE SOD PHOSPHATE INJ 4 MG/1 ML VIAL ONE (16:53)
[2017-06-13] MEDS ORDERED: IBUPROFEN INJ 800 MG/8 ML VIAL IV ONE (16:54)
[2017-06-13] MEDS ORDERED: ACETAMINOPHEN 100 ML IV ONE (16:54)
[2017-06-13] MEDS ORDERED: HYDROMORPHONE HCL INJ/PF 2 MG/ML AMPULE ONE (16:54)
[2017-06-13] MEDS ORDERED: LIDOCAINE 0.5% INJ-PF (5 MG/ML) 50 ML SDV ONE (16:54)
[2017-06-13] MEDS ORDERED: PROPOFOL INJ 200 MG/20 ML VIAL IV ONE (16:54)
[2017-06-13] MEDS ORDERED: DIPHENHYDRAMINE HCL 50 MG/ML VIAL IV PRN (17:43)
[2017-06-13] MEDS ORDERED: FENTANYL CITRATE INJ/PF 100 MCG/2 ML AMPUL IV PRN ×3 (17:43)
[2017-06-13] MEDS ORDERED: PROMETHAZINE HCL INJ 25 MG/1 ML VIAL IV PRN (17:43)
[2017-06-13] MEDS ORDERED: ONDANSETRON HCL INJ/PF 4 MG/2 ML SDV IV PRN (17:43)
[2017-06-13] MEDS ORDERED: MORPHINE SULFATE 10 MG/ML INJ IV PRN (19:03)
--- NOTE | 2017-06-13 19:58 | OPERATIVE REPORT E ---
Operative Report NAME: SUNNY WALLS : 1960 AGE: 56Y DATE OF SURGERY: 06/05/2017 ROOM: 531 PREOPERATIVE DIAGNOSIS: Infected right groin inguinal incision site. POSTOPERATIVE DIAGNOSIS: Infected right groin inguinal incision site with starting abscess and necrotic tissue. OPERATION: Incision and drainage and debridement with pulsatile lavage and placement of wound VAC. SURGEON: RUDI CASTELLANOS M.D. ANESTHESIA: General. INDICATION: This is a 56-year-old male who underwent repair of recurrent inguinal hernia on the right side on 05/26/2017. The patient has been having some discomfort along the right groin and this was drained percutaneously yesterday in the ER by Dr. Waite. Today he has more pains and more redness in the right groin and subsequently taken to the OR for incision and drainage and possible removal of mesh. SUMMARY OF PROCEDURE: After general anesthesia, the patient was placed in the supine position, the right groin prepped and draped in a sterile fashion. Appropriate timeout was done. An incision was made over the old incision site. There was some cloudy fluid that was taken and specimen sent for C and S. Further exploration of the wound reveals necrotic tissue around the area of lateral aspect and more in the subcutaneous area. The Wesley was open completely through the whole wound. The wound opened up was about 6 inches long. All the cavity was unroofed; however, no evidence of exposure of the graft. Then pulsatile lavage of the wound was then performed using 2 L of saline. Further sharp dissection and use of curette was done on the lateral aspect of the wound where there was some more necrotic tissue. This was further sharply debrided with the scissor to viable area. There was no evidence of inflammation along the area of the graft and the graft itself was not exposed. Following this after adequate hemostasis was noted, a wound VAC was then placed on the incision site and connected to negative suction. The patient tolerated the procedure well. Needle, instrument and sponge count were all correct. Estimated blood loss was about 20 mL. The patient was brought to the PACU in satisfactory condition. DICTATING PHYSICIAN: RUDI CASTELLANOS M.D. [id number] PHY#: [id number] ID: [id number] JOB#: [id number] ACCT: [id number] cc:RUDI CASTELLANOS M.D. >
[2017-06-13] MEDS: ONDANSETRON HCL INJ/PF 4 MG/2 ML SDV IV PRN (20:26)
[2017-06-13] MEDS: NORMAL SALINE 1000 ML 1,000 ML IV PRN (20:37)
[2017-06-13] MEDS: OXYCODONE-ACETAMINOPHEN 5-325 MG TABLET PO PRN (22:25)
[2017-06-14] MEDS: CLINDAMYCIN 600 MG/D5W RTU 600 MG/50 ML RTUPB IV SCH ×4 (02:50→20:27)
[2017-06-14] MEDS: HYDROMORPHONE HCL INJ/PF 2 MG/ML AMPULE IV PRN ×6 (02:50→22:02)
[2017-06-14] MEDS: ONDANSETRON HCL INJ/PF 4 MG/2 ML SDV IV PRN ×2 (03:00→22:02)
[2017-06-14] MEDS: OXYCODONE-ACETAMINOPHEN 5-325 MG TABLET PO PRN ×3 (04:13→12:14)
[2017-06-14] MEDS: NICOTINE 21 MG/24 HR PATCH.TD24 TD SCH (10:09)
[2017-06-14] MEDS: NORMAL SALINE 1000 ML 1,000 ML IV PRN (11:03)
--- NOTE | 2017-06-14 12:46 | Physician Advisory Note ---
Physician Advisor ProgressNote .: Pursuant to the plan for [facility], I have reviewed the medical record for this patient. Physician Advisor Statement: Please consider documenting, if you agree: 1. Avoid documenting "history of" for dx.s like COPD that haven't gone away - just state them as co-morbid dx.s: "COPD", etc. 2. "Mild Acute Hyponatremia, likely due to ___" (Pt.s can have a K, or Ca, or Mag, that are obw-nck-yvugt abnormal, and we get no credit at all for the additional complexity, but even a tiny abnormality of Na is accepted as increasing the patient's severity of illness/risk of M&M. May as well get DRG credit where we can.) Thanks! CK
[2017-06-14] MEDS: OXYCODONE HCL IR 5 MG TABLET PO PRN (20:16)
[2017-06-14] MEDS ORDERED: LANSOPRAZOLE 30 MG TAB.RAP.DR PO ONE (22:00)
[2017-06-14] MEDS: GABAPENTIN 300 MG CAPSULE PO PRN (22:02)
[2017-06-15] MEDS: NORMAL SALINE 1000 ML 1,000 ML IV PRN ×2 (01:46→18:24)
[2017-06-15] MEDS: OXYCODONE HCL IR 5 MG TABLET PO PRN ×4 (01:46→22:59)
[2017-06-15] MEDS: CLINDAMYCIN 600 MG/D5W RTU 600 MG/50 ML RTUPB IV SCH ×2 (02:30→10:04)
[2017-06-15] MEDS: HYDROMORPHONE HCL INJ/PF 2 MG/ML AMPULE IV PRN ×6 (03:39→22:13)
[2017-06-15] MEDS: LANSOPRAZOLE 30 MG TAB.RAP.DR PO SCH (08:30)
[2017-06-15] MEDS: ONDANSETRON HCL INJ/PF 4 MG/2 ML SDV IV PRN (08:31)
[2017-06-15] MEDS: GABAPENTIN 300 MG CAPSULE PO PRN ×2 (08:35→23:00)
[2017-06-15] MEDS: VANCOMYCIN HCL 1,250 MG in DEXTROSE 5%-WATER 250 ML IV SCH ×2 (09:32→22:11)
[2017-06-15] MEDS: CITALOPRAM HYDROBROMIDE 20 MG TABLET PO SCH (09:32)
[2017-06-15] MEDS: NICOTINE 21 MG/24 HR PATCH.TD24 TD SCH (09:32)
[2017-06-15] MEDS ORDERED: (PENDING PHARMACY ID) (Citalopram Hydrobromide [Celexa 40 Mg Tablet] 40 MG) PO SCH (10:00)
[2017-06-15] MEDS ORDERED: (PENDING PHARMACY ID) (Esomeprazole Mag Trihydrate [Nexium] 40 MG) PO SCH (10:00)
[2017-06-15] MEDS: DOCUSATE SODIUM 100 MG CAPSULE PO SCH ×2 (11:15→18:24)
--- NOTE | 2017-06-15 13:01 | PDOC PROGRESS REPORT ---
Subjective Progress Note for:: 06/15/17 Subjective:: Some right groin discomfort but otherwise feels okay. Physical Exam Vital Signs: Temp Pulse Resp BP Pulse Ox 97.4 F 74 16 135/84 H 98 06/15/17 11:42 06/15/17 11:42 06/15/17 11:42 06/15/17 11:42 06/15/17 11:42 Intake & Output 06/14/17 06/15/17 06/16/17 06:59 06:59 06:59 Intake Total 5310 4040 Output Total 6010 150 Balance -700 3890 Weight 87.4 kg General appearance: PRESENT: no acute distress, cooperative Respiratory exam: PRESENT: clear to auscultation candi Cardiovascular exam: PRESENT: RRR GI/Abdominal exam: PRESENT: other - Groin wound with wound VAC in place. minimal surrounding skin erythema. Results Laboratory Results: 06/13/17 17:49 Hernia Gram Stain - Final 06/13/17 17:49 Hernia Wound Culture - Final Mrsa (Meth Resis Staph Aureus) No Anaerobic Organisms Impressions: Chest X-Ray 06/13/17 00:00 IMPRESSION: Mild chronic lung changes with no acute cardiopulmonary disease. Assessment & Plan - Diagnosis (1) Wound infection after surgery Is this a current diagnosis for this admission?: Yes Plan: Growing out MRSA. Patient placed on IV vancomycin. Will continue wound VAC. Hopefully we can resolve this infection without having to remove his mesh. In a couple of days will need to remove the wound VAC and reevaluate the wound.
--- NOTE | 2017-06-15 14:41 | RADIOLOGY REPORT (SQ) ---
EXAM DESCRIPTION: PICC INSERTION; FLUORO/CV PLACEMENT; U/S GUIDE FOR VASCULAR ACCESS COMPLETED DATE/TIME: 06/15/2017 2:11 pm REASON FOR STUDY: [facility] IV ANTIBIOTIC THERAPY; IV ABX COMPARISON: CT abdomen pelvis 06/01/2017 FLUOROSCOPY TIME: 7 seconds 1 ultrasound and 1 digital chest radiographic images saved to PACS. TECHNIQUE: Fluoroscopic and ultrasound guided PICC placement. LIMITATIONS: None. PROCEDURE: After written consent and assessment were obtained, the patient was brought into the fluo roscopy room and place supine on the table. Ultrasound was used on the patient's left arm for PICC a ccess. The left arm was prepped and draped in a sterile fashion along with the ultrasound probe. The entry site was anesthetized with 1% lidocaine. A 21 gauge 7 cm needle was advanced through the skin a nd into the basilic vein under live ultrasound guidance. An ultrasound image was saved to PACS confi rming access site. A .018 guide wire was then inserted through the needle and into the venous system . The needle was the removed and an 11 blade scalpel was used to make a 1cm skin incision. A 5 fr pe el-away sheath was advanced over the wire and into the venous system. A measurement was then made usi ng the existing wire and live fluoroscopic guidance. The wire was then removed and the trimmed. The P ICC was advanced through the peel-away sheath and into the venous system. The peel-away sheath was re moved and the catheter was adhered to the patients arm with a stat lock. The catheter was then aspira zia and flushed and a sterile bandage was placed over the access site. A fluoroscopic spot image was saved to PACS confirming the catheter tip within the superior vena cava. IMPRESSION: SUCCESSFUL PLACEMENT OF A 5 FR DUAL LUMEN 40 CM PICC IN THE LEFT BASILIC VEIN. COMMENT: Patient medication list reviewed: Yes- Quality ID# [id number]:Eligible professional attests to doc umenting in the medical record they obtained, updated, or reviewed the patient's current medications. . Quality ID 145: Final reports for procedures using fluoroscopy that document radiation exposure darlene shasta, or exposure time and number of fluorographic images (if radiation exposure indices are not avail able) Quality ID #76: The patient was prepped and draped using maximum sterile barrier technique including cap, mask, sterile gown, sterile gloves, a large sterile sheet, hand hygiene, and 2% Chlorhexidine fo r cutaneous antisepsis. When ultrasound is used, sterile ultrasound techniques are followed requiring sterile gel and sterile probes. TECHNICAL DOCUMENTATION: JOB ID: [id number] [employer]- All Rights Reserved
[2017-06-15] MEDS ORDERED: NORMAL SALINE 10 ML SDV (AFTER EACH USE) IV PRN (19:46)
[2017-06-15] MEDS: NORMAL SALINE 10 ML SDV (SCHEDULED) IV SCH (22:14)
[2017-06-16] MEDS: HYDROMORPHONE HCL INJ/PF 2 MG/ML AMPULE IV PRN ×4 (01:19→20:18)
[2017-06-16 06:34] LABS: ANION GAP 9 (5-19); BLOOD UREA NITROGEN 8 mg/dL (7-20); CALCIUM 8.6 mg/dL (8.4-10.2); CARBON DIOXIDE 29 mmol/L (22-30); CHLORIDE 104 mmol/L (98-107); CREATININE RESULT 0.67 mg/dL (0.52-1.25); GLUCOSE 88 mg/dL (75-110); POTASSIUM 4.2 mmol/L (3.6-5.0); SODIUM 141.5 mmol/L (137-145)
[2017-06-16 06:46] LABS: ABSOLUTE EOSINOPHILS # (AUTO) 0.1 10^3/uL (0.0-0.6); ABSOLUTE LYMPHOCYTES (AUTO) 1.9 10^3/uL (0.5-4.7); ABSOLUTE MONOCYTES (AUTO) 0.8 10^3/uL (0.1-1.4); ABSOLUTE NEUT (AUTO) 6.9 10^3/uL (1.7-8.2); BASOPHILS % (AUTO) 0.2 % (0-2); EOSINOPHILS % (AUTO) 1.2 % (0-6); HEMATOCRIT 35.8 % (37.9-51.0); HGB HCT DIFFERENCE 0.8; LYMPHOCYTES % (AUTO) 19.6 % (13-45); MEAN CORPUSCULAR HEMOGLOBIN 32.7 pg (27.0-33.4); MEAN CORPUSCULAR HGB CONC 34.2 g/dL (32.0-36.0); MEAN CORPUSCULAR VOLUME 96 fl (80-97); MONOCYTES % (AUTO) 8.1 % (3-13); RED BLOOD COUNT 3.74 10^6/uL (4.35-5.55); RED CELL DISTRIBUTION WIDTH 15.6 % (11.5-14.0); SEGMENTED NEUTROPHILS % (AUTO) 70.9 % (42-78); WHITE BLOOD COUNT 9.7 10^3/uL (4.0-10.5)
[2017-06-16 06:47] LABS: HEMOGLOBIN 12.2 g/dL (13.5-17.0)
[2017-06-16] MEDS: LANSOPRAZOLE 30 MG TAB.RAP.DR PO SCH (08:07)
[2017-06-16] MEDS: NICOTINE 21 MG/24 HR PATCH.TD24 TD SCH (09:43)
[2017-06-16] MEDS ORDERED: LIDOCAINE 0.5% INJ-PF (5 MG/ML) 50 ML SDV ONE (09:43)
[2017-06-16] MEDS: CITALOPRAM HYDROBROMIDE 20 MG TABLET PO SCH (09:50)
[2017-06-16] MEDS: DOCUSATE SODIUM 100 MG CAPSULE PO SCH ×2 (09:50→18:47)
[2017-06-16] MEDS: GABAPENTIN 300 MG CAPSULE PO PRN (09:51)
[2017-06-16] MEDS: NORMAL SALINE 10 ML SDV (SCHEDULED) IV SCH ×2 (09:52→21:41)
[2017-06-16] MEDS: VANCOMYCIN HCL 1,250 MG in DEXTROSE 5%-WATER 250 ML IV SCH ×2 (09:54→21:41)
[2017-06-16] MEDS: IPRATROPIUM/ALBUTEROL 0.5-2.5 MG/3 ML AMPUL NEB PRN (13:41)
[2017-06-16] MEDS: OXYCODONE HCL IR 5 MG TABLET PO PRN ×2 (14:21→18:44)
[2017-06-16] MEDS ORDERED: MIDAZOLAM 2 MG/2 ML INJ ONE (15:19)
[2017-06-16] MEDS ORDERED: FENTANYL CITRATE INJ/PF 100 MCG/2 ML AMPUL ONE (15:19)
[2017-06-16] MEDS ORDERED: ONDANSETRON HCL INJ/PF 4 MG/2 ML SDV ONE (15:19)
[2017-06-16] MEDS ORDERED: PROPOFOL INJ 200 MG/20 ML VIAL IV ONE ×2 (15:20→16:49)
[2017-06-16] MEDS ORDERED: HYDROMORPHONE HCL INJ/PF 2 MG/ML AMPULE ONE (16:23)
[2017-06-16] MEDS ORDERED: PROMETHAZINE HCL INJ 25 MG/1 ML VIAL IV PRN (16:38)
[2017-06-16] MEDS ORDERED: MEPERIDINE HCL/PF INJ 25 MG/1 ML DISP.SYRIN IV PRN (16:38)
[2017-06-16] MEDS: FENTANYL CITRATE INJ/PF 100 MCG/2 ML AMPUL ONE ×3 (17:20→17:30)
[2017-06-16] MEDS: DIPHENHYDRAMINE HCL 50 MG/ML VIAL IV PRN ×2 (18:34→18:50)
[2017-06-16] MEDS: FENTANYL CITRATE INJ/PF 100 MCG/2 ML AMPUL IV PRN ×6 (18:34→18:50)
[2017-06-16] MEDS: ONDANSETRON HCL INJ/PF 4 MG/2 ML SDV IV PRN (21:41)
[2017-06-17] MEDS: HYDROMORPHONE HCL INJ/PF 2 MG/ML AMPULE IV PRN ×6 (00:13→22:05)
[2017-06-17] MEDS: NORMAL SALINE 1000 ML 1,000 ML IV PRN ×2 (03:14→21:56)
[2017-06-17] MEDS: OXYCODONE HCL IR 5 MG TABLET PO PRN ×3 (06:01→20:43)
[2017-06-17] MEDS: LANSOPRAZOLE 30 MG TAB.RAP.DR PO SCH (08:12)
[2017-06-17] MEDS: DOCUSATE SODIUM 100 MG CAPSULE PO SCH ×2 (10:27→18:59)
[2017-06-17] MEDS: NICOTINE 21 MG/24 HR PATCH.TD24 TD SCH (10:27)
[2017-06-17] MEDS: VANCOMYCIN HCL 1,250 MG in DEXTROSE 5%-WATER 250 ML IV SCH ×2 (10:27→18:59)
[2017-06-17] MEDS: CITALOPRAM HYDROBROMIDE 20 MG TABLET PO SCH (10:27)
[2017-06-17] MEDS: NORMAL SALINE 10 ML SDV (SCHEDULED) IV SCH ×2 (10:28→21:56)
--- NOTE | 2017-06-17 14:23 | PROGRESS NOTE E ---
Progress Note NAME: SUNNY WALLS : 1960 AGE: 56Y DATE: 06/17/2017 ROOM: 531 SUBJECTIVE: Patient is still complaining of pain along the incision sites. Patient has issues taking oxycodone for back discomfort and may have a low tolerance for pain medication. He wants to be put back on his regular dose of Dilaudid. OBJECTIVE: His abdomen is soft. The dressing is intact and the erythema on the right side of the abdominal wall appears to have decreased. PLAN: The plan is to bring him back to the OR and do another evaluation of the wound and do some more debridement if needed. We will reevaluate the area of the graft and if it is involved, then definitely needs to be taken out but at the present time, it appears that there is no obvious involvement of the graft. In the meantime, continue with IV vancomycin for MRSA infection. He is a little anxious and would like to stay in the hospital as long as possible until we are sure about the infection status. DICTATING PHYSICIAN: RUDI CASTELLANOS M.D. [id number] PHY#: [id number] ID: [id number] JOB#: [id number] ACCT: [id number] cc: >
[2017-06-17] MEDS: ONDANSETRON HCL INJ/PF 4 MG/2 ML SDV IV PRN (22:06)
[2017-06-18] MEDS: VANCOMYCIN HCL 1,250 MG in DEXTROSE 5%-WATER 250 ML IV SCH ×3 (01:09→18:32)
[2017-06-18] MEDS: HYDROMORPHONE HCL INJ/PF 2 MG/ML AMPULE IV PRN ×4 (01:09→20:52)
[2017-06-18] MEDS: OXYCODONE HCL IR 5 MG TABLET PO PRN ×3 (06:02→22:32)
[2017-06-18] MEDS: LANSOPRAZOLE 30 MG TAB.RAP.DR PO SCH (08:49)
[2017-06-18 10:55] LABS: CREATININE RESULT 0.63 mg/dL (0.52-1.25)
[2017-06-18] MEDS ORDERED: PROPOFOL INJ 200 MG/20 ML VIAL IV ONE (12:22)
[2017-06-18] MEDS ORDERED: FENTANYL CITRATE INJ/PF 100 MCG/2 ML AMPUL ONE (12:22)
[2017-06-18] MEDS ORDERED: MIDAZOLAM 2 MG/2 ML INJ ONE (12:22)
[2017-06-18] MEDS ORDERED: PROMETHAZINE HCL INJ 25 MG/1 ML VIAL IV PRN (13:17)
[2017-06-18] MEDS ORDERED: FENTANYL CITRATE INJ/PF 100 MCG/2 ML AMPUL IV PRN ×3 (13:17)
[2017-06-18] MEDS ORDERED: DIPHENHYDRAMINE HCL 50 MG/ML VIAL IV PRN (13:17)
[2017-06-18] MEDS ORDERED: KETAMINE HCL INJ 500 MG/10 ML VIAL ONE (13:37)
[2017-06-18] MEDS ORDERED: HYDROMORPHONE HCL INJ/PF 2 MG/ML AMPULE ONE (13:50)
[2017-06-18] MEDS: NORMAL SALINE 10 ML SDV (SCHEDULED) IV SCH ×2 (15:17→21:53)
[2017-06-18] MEDS: DOCUSATE SODIUM 100 MG CAPSULE PO SCH ×2 (15:27→17:22)
[2017-06-18] MEDS: GABAPENTIN 300 MG CAPSULE PO PRN (15:27)
[2017-06-18] MEDS: NICOTINE 21 MG/24 HR PATCH.TD24 TD SCH (15:27)
[2017-06-18] MEDS: CITALOPRAM HYDROBROMIDE 20 MG TABLET PO SCH (15:27)
[2017-06-18] MEDS ORDERED: HYDROMORPHONE HCL INJ/PF 2 MG/ML AMPULE IV ONE (15:30)
--- NOTE | 2017-06-18 16:53 | OPERATIVE REPORT E ---
Operative Report NAME: SUNNY WALLS : 1960 AGE: 56Y DATE OF SURGERY: 06/18/2017 ROOM: 531 PREOPERATIVE DIAGNOSIS: Abscess cavity right groin and post repair of recurrent right inguinal hernia with mesh. This is going to be the third operation. He had debridement and removal of the wound VAC 2 days ago. POSTOPERATIVE DIAGNOSIS: OPERATION: Debridement of right groin wound and pulsatile lavage and packing with iodoform gauze. SURGEON: RUDI CASTELLANOS M.D. ANESTHESIA: TISSUE REMOVED OR ALTERED: PROCEDURE: After adequate IV sedation, the patient was placed in the supine position and the right groin area was prepped and draped in the usual sterile fashion. There was a smaller amount of *------* exudate along the surface of the wound. This was then primarily debrided through the use of a curette. Again, the graft site noted to be covered by fairly good granulation tissue, though a little bit more lateral to it is still poor granulation tissue but no evidence of discharge or infection. The wound was irrigated with pulsatile lavage using 2 L of saline. No evidence of any abscess cavity noted. The inflammation along the right lateral aspect of the wound appears to have improved dramatically. In view of the fact that the wound VAC was not successful in improving the wound status, I hesitated to put a new VAC at this time. Hopefully in the next 2-3 days the patient will be taken back to the OR and possibly put a wound VAC at that time. Also I decided to leave the graft since it was not exposed, and I believe that it is not involved in the infection. He is still recovering from his MRSA culture and continue on IV vancomycin. The wound was subsequently packed with 3 bottles of 1/2-inch Iodoform gauze and a sterile dressing with 4 x 4 and ABD pad was used to cover the wound. The patient tolerated the procedure well. Needle, instrument and sponge counts were all correct. Estimated blood loss about 10 ml. The patient was brought to the recovery room in satisfactory condition. DICTATING PHYSICIAN: RUDI CASTELLANOS M.D. [id number] PHY#: [id number] ID: [id number] JOB#: [id number] ACCT: [id number] cc:RUDI CASTELLANOS M.D. >
[2017-06-18] MEDS: ONDANSETRON HCL INJ/PF 4 MG/2 ML SDV IV PRN (22:42)
[2017-06-18] MEDS: NORMAL SALINE 1000 ML 1,000 ML IV PRN (23:38)
[2017-06-19] MEDS: HYDROMORPHONE HCL INJ/PF 2 MG/ML AMPULE IV PRN ×5 (00:39→22:33)
[2017-06-19] MEDS: VANCOMYCIN HCL 1,250 MG in DEXTROSE 5%-WATER 250 ML IV SCH ×3 (01:49→19:12)
[2017-06-19] MEDS: OXYCODONE HCL IR 5 MG TABLET PO PRN ×3 (06:44→21:09)
[2017-06-19] MEDS: LANSOPRAZOLE 30 MG TAB.RAP.DR PO SCH (08:33)
[2017-06-19] MEDS: GABAPENTIN 300 MG CAPSULE PO PRN ×2 (08:36→22:34)
[2017-06-19] MEDS: CITALOPRAM HYDROBROMIDE 20 MG TABLET PO SCH (11:06)
[2017-06-19] MEDS: DOCUSATE SODIUM 100 MG CAPSULE PO SCH ×2 (11:07→19:11)
[2017-06-19] MEDS: NICOTINE 21 MG/24 HR PATCH.TD24 TD SCH (11:08)
[2017-06-19] MEDS: NORMAL SALINE 10 ML SDV (SCHEDULED) IV SCH ×2 (11:12→21:09)
--- NOTE | 2017-06-19 11:57 | PDOC PROGRESS REPORT ---
Subjective Progress Note for:: 06/19/17 Subjective:: Mr Ventura is a 56 year old male with cellulitis of the right inguinal region. OR tomorrow for inspection of the site. NPO after midnight. Diet regular for today. Pain controlled. Denies any fever, chest pain, shortness of breath, headache or dizziness. Physical Exam Vital Signs: Temp Pulse Resp BP Pulse Ox 98.1 F 92 18 128/81 H 95 06/19/17 07:56 06/19/17 07:56 06/19/17 07:56 06/19/17 07:56 06/19/17 07:56 Intake & Output 06/18/17 06/19/17 06/20/17 06:59 06:59 06:59 Intake Total 3579 5820 Output Total 200 2005 Balance 0867 3815 General appearance: PRESENT: no acute distress, well-developed, well-nourished Mouth exam: PRESENT: moist Respiratory exam: PRESENT: clear to auscultation candi GI/Abdominal exam: PRESENT: other - dressing intact, erythema improved Extremities exam: PRESENT: +1 edema Neurological exam: PRESENT: alert, awake, oriented to person, oriented to place , oriented to time, oriented to situation, CN II-XII grossly intact. ABSENT: motor sensory deficit Results Laboratory Results: 06/16/17 06:00 06/18/17 10:22 Impressions: Chest X-Ray 06/13/17 00:00 IMPRESSION: Mild chronic lung changes with no acute cardiopulmonary disease. Guidance Fluoroscopy 06/15/17 00:00 IMPRESSION: SUCCESSFUL PLACEMENT OF A 5 FR DUAL LUMEN 40 CM PICC IN THE LEFT BASILIC VEIN. Interventional Vascular Procedure 06/15/17 00:00 IMPRESSION: SUCCESSFUL PLACEMENT OF A 5 FR DUAL LUMEN 40 CM PICC IN THE LEFT BASILIC VEIN. PICC Line Insertion 06/15/17 00:00 IMPRESSION: SUCCESSFUL PLACEMENT OF A 5 FR DUAL LUMEN 40 CM PICC IN THE LEFT BASILIC VEIN. Assessment & Plan - Diagnosis (1) Cellulitis, wound, post-operative Qualifiers: Encounter type: initial encounter Qualified Code(s): T81.4XXA - Infection following a procedure, initial encounter Is this a current diagnosis for this admission?: Yes Plan: OR tomorrow to inspect site and change dressing Discussed patient Preop tonight for OR tomorrow Pain control Pulmonary toilet - Time Time Spent with patient: 15-24 minutes
[2017-06-20] MEDS: ONDANSETRON HCL INJ/PF 4 MG/2 ML SDV IV PRN (00:44)
[2017-06-20] MEDS: VANCOMYCIN HCL 1,250 MG in DEXTROSE 5%-WATER 250 ML IV SCH ×3 (01:46→18:48)
[2017-06-20] MEDS: HYDROMORPHONE HCL INJ/PF 2 MG/ML AMPULE IV PRN ×5 (02:11→22:11)
[2017-06-20] MEDS: OXYCODONE HCL IR 5 MG TABLET PO PRN (06:58)
--- NOTE | 2017-06-20 07:55 | PDOC PROGRESS REPORT ---
Subjective Progress Note for:: 06/20/17 Subjective:: Mr Ventura denies any pain at the site this am Improved from last PM Continued serosanguinous drainage OR today for wound exploration, irrigation and packing Considering wound vac, will d/w Dr Arnett Physical Exam Vital Signs: Temp Pulse Resp BP Pulse Ox 98.1 F 75 18 129/79 H 96 06/19/17 15:36 06/19/17 15:36 06/19/17 15:36 06/19/17 15:36 06/19/17 15:36 Intake & Output 06/19/17 06/20/17 06/21/17 06:59 06:59 06:59 Intake Total 5820 3010 Output Total 2004 1000 Balance 3815 2009 General appearance: PRESENT: no acute distress Head exam: PRESENT: atraumatic, normocephalic Eye exam: PRESENT: conjunctiva pink Mouth exam: PRESENT: moist, neck supple Neck exam: PRESENT: thyromegaly, tracheal deviation Respiratory exam: PRESENT: symmetrical, unlabored. ABSENT: accessory muscle use Pulses: PRESENT: normal dorsalis pedis pul Vascular exam: PRESENT: normal capillary refill GI/Abdominal exam: PRESENT: soft, tenderness Neurological exam: PRESENT: alert, awake, oriented to person, oriented to place , oriented to time, oriented to situation, CN II-XII grossly intact. ABSENT: motor sensory deficit Results Laboratory Results: 06/16/17 06:00 06/18/17 10:22 Impressions: Chest X-Ray 06/13/17 00:00 IMPRESSION: Mild chronic lung changes with no acute cardiopulmonary disease. Guidance Fluoroscopy 06/15/17 00:00 IMPRESSION: SUCCESSFUL PLACEMENT OF A 5 FR DUAL LUMEN 40 CM PICC IN THE LEFT BASILIC VEIN. Interventional Vascular Procedure 06/15/17 00:00 IMPRESSION: SUCCESSFUL PLACEMENT OF A 5 FR DUAL LUMEN 40 CM PICC IN THE LEFT BASILIC VEIN. PICC Line Insertion 06/15/17 00:00 IMPRESSION: SUCCESSFUL PLACEMENT OF A 5 FR DUAL LUMEN 40 CM PICC IN THE LEFT BASILIC VEIN. Assessment & Plan - Diagnosis (1) Cellulitis, wound, post-operative Qualifiers: Encounter type: initial encounter Qualified Code(s): T81.4XXA - Infection following a procedure, initial encounter Is this a current diagnosis for this admission?: Yes Plan: NPO IVF Antibiotics Pain control OR today for reinspection of the wound - Time Time Spent with patient: Less than 15 minutes
[2017-06-20] MEDS: LANSOPRAZOLE 30 MG TAB.RAP.DR PO SCH (08:00)
[2017-06-20] MEDS ORDERED: LIDOCAINE 1%/EPINEPHRINE INJ 20 ML VIAL ONE (08:06)
[2017-06-20] MEDS ORDERED: BUPIVACAINE HCL 0.25 % INJ/PF (2.5 MG/1 ML) 30 ML VIAL ONE (08:06)
[2017-06-20] MEDS: CITALOPRAM HYDROBROMIDE 20 MG TABLET PO SCH (10:01)
[2017-06-20] MEDS: DOCUSATE SODIUM 100 MG CAPSULE PO SCH ×2 (10:01→19:32)
[2017-06-20] MEDS: NICOTINE 21 MG/24 HR PATCH.TD24 TD SCH (10:01)
[2017-06-20] MEDS: NORMAL SALINE 10 ML SDV (SCHEDULED) IV SCH ×2 (10:04→22:11)
[2017-06-20] MEDS ORDERED: ONDANSETRON HCL INJ/PF 4 MG/2 ML SDV ONE (16:07)
[2017-06-20] MEDS ORDERED: MIDAZOLAM 2 MG/2 ML INJ ONE (16:07)
[2017-06-20] MEDS ORDERED: IBUPROFEN INJ 800 MG/8 ML VIAL IV ONE (16:07)
[2017-06-20] MEDS ORDERED: PROPOFOL INJ 200 MG/20 ML VIAL IV ONE (16:07)
[2017-06-20] MEDS ORDERED: HYDROMORPHONE HCL INJ/PF 2 MG/ML AMPULE ONE (16:08)
[2017-06-20] MEDS ORDERED: PROMETHAZINE HCL INJ 25 MG/1 ML VIAL IV PRN (16:38)
[2017-06-20] MEDS ORDERED: FENTANYL CITRATE INJ/PF 100 MCG/2 ML AMPUL IV PRN ×3 (16:38)
--- NOTE | 2017-06-20 17:09 | Operative Report ---
Operative Report DATE OF SURGERY: 06/20/17 Operative Report: Clinical indications: Mr. Macario is a 56-year-old male presents to the hospital within the last 7 days for acute onset of cellulitis and infection of right inguinal incision. Prior history of open recurrent inguinal hernia repair with mesh. Cultures did return positive for MRSA. Review of prior op note noticing fully incorporated mesh at last irrigation and debridement. Notable that this is similar to the findings from this irrigation and debridement. Per staff for reinspection of the area site seems to be for further contracted. consent was obtained from the patient explained competitions risks and benefits for the procedure including but limited to bleeding infection need for operation to which he accepted. Procedure: Patient brought to the operative suite prior to second induction SCDs were placed and functional after adequate anesthetic induction successful intubation was sterilely prepped and draped in usual manner. Prior wound was undressed removing the entirety of the iodoform gauze and packing as well as the stitches that were reapproximating the wound on either side of midline. Pulse lavage irrigation was done of normal saline 3000 mL's. Debridement of the site was done sharply both with a 15 blade scalpel as well as Metzenbaum scissors to remove excess yellow fibrinous exudate and minimal necrotic tissue. At completion of procedure minimal oozing was noted but no generalized bleeding pressure is maintained and minimal electrocautery was used for hemostasis. Wound was then dressed at this time using 1-1/4 bottles of quarter inch iodoform gauze. Superficially to this we placed 4 x 4's ABDs and tape. Patient was awoke from anesthesia successfully extubated and transferred back to recovery in stable condition. PREOPERATIVE DIAGNOSIS: Postoperative wound infection. MRSA POSTOPERATIVE DIAGNOSIS: Postoperative wound infection. MRSA OPERATION: Irrigation and debridement of RLQ abdominal wall wound SURGEON: RAMONA SNELL ANESTHESIA: GA TISSUE REMOVED OR ALTERED: debrided yellow fibrinous exudate and minimal necrotic tissue COMPLICATIONS: None ESTIMATED BLOOD LOSS: 5 mls INTRAOPERATIVE FINDINGS: No visible mesh, wound measuring 25 x 6 x 4 cms. 75% granulation tissue. Yellow fibrinous exudate
[2017-06-20] MEDS: FENTANYL CITRATE INJ/PF 100 MCG/2 ML AMPUL ONE ×2 (17:20→17:25)
[2017-06-20] MEDS: GABAPENTIN 300 MG CAPSULE PO PRN (19:31)
[2017-06-21] MEDS: VANCOMYCIN HCL 1,250 MG in DEXTROSE 5%-WATER 250 ML IV SCH ×3 (02:28→17:38)
[2017-06-21] MEDS: HYDROMORPHONE HCL INJ/PF 2 MG/ML AMPULE IV PRN ×6 (02:28→23:53)
[2017-06-21] MEDS: NORMAL SALINE 1000 ML 1,000 ML IV PRN (06:22)
[2017-06-21 08:00] LABS: CREATININE RESULT 0.75 mg/dL (0.52-1.25)
[2017-06-21] MEDS: LANSOPRAZOLE 30 MG TAB.RAP.DR PO SCH (08:17)
[2017-06-21] MEDS: NICOTINE 21 MG/24 HR PATCH.TD24 TD SCH (10:48)
[2017-06-21] MEDS: OXYCODONE HCL IR 5 MG TABLET PO PRN ×2 (10:50→17:35)
[2017-06-21] MEDS: DOCUSATE SODIUM 100 MG CAPSULE PO SCH ×2 (10:51→17:38)
[2017-06-21] MEDS: CITALOPRAM HYDROBROMIDE 20 MG TABLET PO SCH (10:51)
[2017-06-21] MEDS: NORMAL SALINE 10 ML SDV (SCHEDULED) IV SCH ×2 (10:56→22:45)
[2017-06-21] MEDS: GABAPENTIN 300 MG CAPSULE PO PRN (10:56)
[2017-06-21] MEDS ORDERED: DEXTROSE 50%-WATER 25 GM/50 ML DISP.SYRIN IV PRN ×2 (15:08)
[2017-06-21] MEDS ORDERED: DEXTROSE 40% GEL 15 GM TUBE PO PRN ×2 (15:08)
[2017-06-21] MEDS ORDERED: GLUCAGON,HUMAN RECOMB 1 MG INJ SUBCUT PRN (15:08)
--- NOTE | 2017-06-21 15:08 | PDOC PROGRESS REPORT ---
Subjective Progress Note for:: 06/21/17 Subjective:: Doing well after wound I&D Dressing intact pain limited to sites Physical Exam Vital Signs: Temp Pulse Resp BP Pulse Ox 98.2 F 73 16 109/56 L 91 L 06/21/17 11:58 06/21/17 11:58 06/21/17 11:58 06/21/17 11:58 06/21/17 11:58 Intake & Output 06/20/17 06/21/17 06/22/17 06:59 06:59 06:59 Intake Total 3010 4910 Output Total 1000 3005 Balance 2009 1904 Weight 87.5 kg General appearance: PRESENT: no acute distress Head exam: PRESENT: atraumatic, normocephalic GI/Abdominal exam: PRESENT: soft, tenderness - appropriate, other - erythema surrounding wound resolved Neurological exam: PRESENT: alert, awake, oriented to person, oriented to place , oriented to time, oriented to situation, CN II-XII grossly intact. ABSENT: motor sensory deficit Results Laboratory Results: 06/16/17 06:00 06/21/17 07:17 06/21/17 07:17 Creatinine 0.75 Est GFR ( Amer) > 60 Est GFR (Non-Af Amer) > 60 Impressions: Chest X-Ray 06/13/17 00:00 IMPRESSION: Mild chronic lung changes with no acute cardiopulmonary disease. Guidance Fluoroscopy 06/15/17 00:00 IMPRESSION: SUCCESSFUL PLACEMENT OF A 5 FR DUAL LUMEN 40 CM PICC IN THE LEFT BASILIC VEIN. Interventional Vascular Procedure 06/15/17 00:00 IMPRESSION: SUCCESSFUL PLACEMENT OF A 5 FR DUAL LUMEN 40 CM PICC IN THE LEFT BASILIC VEIN. PICC Line Insertion 06/15/17 00:00 IMPRESSION: SUCCESSFUL PLACEMENT OF A 5 FR DUAL LUMEN 40 CM PICC IN THE LEFT BASILIC VEIN. Assessment & Plan - Diagnosis (1) Cellulitis, wound, post-operative Qualifiers: Encounter type: initial encounter Qualified Code(s): T81.4XXA - Infection following a procedure, initial encounter Is this a current diagnosis for this admission?: Yes Plan: NPO after midnight for possible wound I&D tomorrow Pain control Incentive spirometer DVT/GI prophylaxis - Time Time Spent with patient: Less than 15 minutes
[2017-06-21] MEDS: IPRATROPIUM/ALBUTEROL 0.5-2.5 MG/3 ML AMPUL NEB PRN ×2 (16:05→19:55)
[2017-06-22] MEDS: GABAPENTIN 300 MG CAPSULE PO PRN ×2 (01:09→11:54)
[2017-06-22] MEDS: VANCOMYCIN HCL 1,250 MG in DEXTROSE 5%-WATER 250 ML IV SCH (01:09)
[2017-06-22] MEDS: OXYCODONE HCL IR 5 MG TABLET PO PRN ×3 (01:10→20:25)
[2017-06-22] MEDS: HYDROMORPHONE HCL INJ/PF 2 MG/ML AMPULE IV PRN ×3 (03:59→11:54)
[2017-06-22 05:57] LABS: HEMATOCRIT 32.6 % (37.9-51.0); HEMOGLOBIN 11.4 g/dL (13.5-17.0); HGB HCT DIFFERENCE 1.6; MEAN CORPUSCULAR HEMOGLOBIN 32.8 pg (27.0-33.4); MEAN CORPUSCULAR HGB CONC 34.9 g/dL (32.0-36.0); MEAN CORPUSCULAR VOLUME 94 fl (80-97); RED BLOOD COUNT 3.47 10^6/uL (4.35-5.55); RED CELL DISTRIBUTION WIDTH 14.6 % (11.5-14.0); WHITE BLOOD COUNT 7.4 10^3/uL (4.0-10.5)
--- NOTE | 2017-06-22 08:06 | PDOC PROGRESS REPORT ---
Subjective Progress Note for:: 06/22/17 Subjective:: Feels well. Wounds still painful. Patient has chronic narcotic dependent due to chronic back pain. Physical Exam Vital Signs: Temp Pulse Resp BP Pulse Ox 98.0 F 70 17 123/63 95 06/22/17 00:13 06/22/17 00:13 06/22/17 00:13 06/22/17 00:13 06/22/17 00:13 Intake & Output 06/21/17 06/22/17 06/23/17 06:59 06:59 06:59 Intake Total 4910 2800 Output Total 3005 Balance 1905 2800 Weight 87.5 kg General appearance: PRESENT: no acute distress, cooperative Cardiovascular exam: PRESENT: RRR GI/Abdominal exam: PRESENT: other - Right groin wound packing removed. Wound has no necrotic debris. No exposed mesh. No surrounding erythema. Extremities exam: PRESENT: other - No swelling and no tenderness Results Laboratory Results: 06/22/17 05:30 06/21/17 07:17 06/21/17 06/22/17 07: 05:30 WBC 7.4 RBC 3.47 L Hgb 11.4 L Hct 32.6 L MCV 94 MCH 32.8 MCHC 34.9 RDW 14.6 H Plt Count 235 Creatinine 0.75 Est GFR ( Amer) > 60 Est GFR (Non-Af Amer) > 60 Impressions: Chest X-Ray 06/13/17 00:00 IMPRESSION: Mild chronic lung changes with no acute cardiopulmonary disease. Guidance Fluoroscopy 06/15/17 00:00 IMPRESSION: SUCCESSFUL PLACEMENT OF A 5 FR DUAL LUMEN 40 CM PICC IN THE LEFT BASILIC VEIN. Interventional Vascular Procedure 06/15/17 00:00 IMPRESSION: SUCCESSFUL PLACEMENT OF A 5 FR DUAL LUMEN 40 CM PICC IN THE LEFT BASILIC VEIN. PICC Line Insertion 06/15/17 00:00 IMPRESSION: SUCCESSFUL PLACEMENT OF A 5 FR DUAL LUMEN 40 CM PICC IN THE LEFT BASILIC VEIN. Assessment & Plan - Diagnosis (1) Wound infection after surgery Is this a current diagnosis for this admission?: Yes Plan: Status post recent recurrent debridement. No necrotic tissue to debride. Will do gauze packing. May switch over to a wound VAC in the next couple of days. Patient has narcotic dependence issues. Will consult [facility].
[2017-06-22] MEDS: LANSOPRAZOLE 30 MG TAB.RAP.DR PO SCH (08:11)
[2017-06-22] MEDS: DOCUSATE SODIUM 100 MG CAPSULE PO SCH ×2 (11:53→17:40)
[2017-06-22] MEDS: CITALOPRAM HYDROBROMIDE 20 MG TABLET PO SCH (11:53)
[2017-06-22] MEDS: NICOTINE 21 MG/24 HR PATCH.TD24 TD SCH (11:53)
[2017-06-22] MEDS: NORMAL SALINE 10 ML SDV (SCHEDULED) IV SCH ×2 (11:54→21:31)
[2017-06-22] MEDS ORDERED: HYDROMORPHONE HCL INJ 2 MG/ML 20 ML MDV IV PRN (13:25)
[2017-06-22] MEDS: IPRATROPIUM/ALBUTEROL 0.5-2.5 MG/3 ML AMPUL NEB PRN (13:51)
[2017-06-23] MEDS: HYDROMORPHONE HCL INJ/PF 2 MG/ML AMPULE IV PRN ×2 (00:30→12:51)
[2017-06-23] MEDS: OXYCODONE HCL IR 5 MG TABLET PO PRN ×5 (02:27→20:49)
--- NOTE | 2017-06-23 09:13 | CONSULTATION REPORT E ---
Consultation Report NAME: SUNNY WALLS : 1960 AGE: 56Y DATE: 06/23/2017 531 A TO: RADHA GARCIA M.D. FROM: Dr. Martin. Requesting Physician CHIEF COMPLAINT: Chronic low back pain and acute right inguinal pain status post wound complication after hernia repair. HISTORY OF PRESENT ILLNESS: A 56-year-old male with recent move from [place] with history of chronic low back pain on chronic opioid management the last 2 years, had repair of incarcerated right inguinal hernia on May 26, [address] Briones. He had previous inguinal hernia. He had complications postoperatively with wound infection with MRSA requiring debridement and continued wound management with wound VAC initially. He notes that he was on chronic pain medication for his low back and lumbar radiculopathy for years in [place] before his move here and was on fentanyl patch 12 mcg and oxycodone 10 mg every 6 hours at home. He notes that his wound pain from the right inguinal hernia repair is actually doing well. His chronic low back pain was shooting into his right lower extremity down to his foot and had been the most bothersome over the last couple days. He notes that the oxycodone has been helpful, but wishes to take it more frequently. He states that the hydromorphone he has received only works for short periods of time around wound care. He denies any side effects from the medications, such as constipation, nausea, vomiting, itching. He notes the sharp, stabbing pain down the right leg and dual stiffness, ache with any movement of his lower back. He has periods of sharp pain in his right inguinal hernia area post incision. He continues on antibiotics with plans for replacement of wound VAC since his last debridement. PAST SURGICAL HISTORY: 1. Previous right inguinal hernia repair, now status post I and D, wound VAC placement removal. 2. History of bilateral hip replacements in 2013. PAST MEDICAL HISTORY: 1. Hypertension. 2. COPD. 3. History of osteoarthritis. 4. History of lumbar radiculopathy. 5. History of chronic low back pain. 6. History of depression. ALLERGIES: 1. BACTRIM. 2. LATEX. 3. MORPHINE. FAMILY HISTORY: Noncontributory. SOCIAL HISTORY: Still smoking about half a pack a day. Denies alcohol or recreational drug use. Denies prior opioid drug use. Notes 2-year history of being on chronic opioids. REVIEW OF SYSTEMS: Unchanged from history and physical from 06/13. No cough, shortness of breath, constipation, or dysuria. No headaches, hearing or visual problems, any chest pain. Continues to have pain on the right groin and in his lower back down his right lower extremity. PHYSICAL EXAMINATION: GENERAL: Well-developed, well-nourished male alert and oriented. NECK: Supple. LUNGS: Clear to auscultation. HEART: Regular rate and rhythm. ABDOMEN: Soft. Large wound dressing to right lower abdomen clean, dry, and intact. EXTREMITIES: Warm, well perfused. SPINE: Tenderness to palpation in the lower lumbar spine. Able to ambulate on heels and toes. Negative straight leg raise bilaterally. NEUROLOGIC: Moves all extremities x4. PSYCHIATRIC: Normal mood and affect. ASSESSMENT: 1. Patient with post-inguinal hernia repair with complication of wound infection with right groin pain. 2. Chronic lumbar radiculopathy, chronic low back pain. PLAN: 1. We will transition him to oxycodone 15 mg every 4 hours and move away from the IV hydromorphone only for wound dressing changes. 2. We will have him set up in our pain clinic to be followed up next week after he is discharged after pending wound VAC placement. 3. We will obtain his records upon his outpatient visit to initiate chronic opioid management. DICTATING PHYSICIAN: RADHA GARCIA M.D. [id number] PHY#: [id number] ID: [id number] JOB#: [id number] ACCT: [id number] cc:RADHA GARCIA M.D. > MTDD
[2017-06-23] MEDS: CITALOPRAM HYDROBROMIDE 20 MG TABLET PO SCH (11:23)
[2017-06-23] MEDS: LANSOPRAZOLE 30 MG TAB.RAP.DR PO SCH (11:28)
[2017-06-23] MEDS: DOCUSATE SODIUM 100 MG CAPSULE PO SCH ×2 (11:28→16:50)
[2017-06-23] MEDS: NICOTINE 21 MG/24 HR PATCH.TD24 TD SCH (11:28)
[2017-06-23] MEDS: NORMAL SALINE 10 ML SDV (SCHEDULED) IV SCH ×2 (11:29→21:57)
[2017-06-23] MEDS: VANCOMYCIN HCL 1,250 MG in DEXTROSE 5%-WATER 250 ML IV SCH ×2 (16:45→21:57)
[2017-06-23] MEDS: ONDANSETRON HCL INJ/PF 4 MG/2 ML SDV IV PRN (16:50)
--- NOTE | 2017-06-23 22:58 | PROGRESS NOTE E ---
Progress Note NAME: SUNNY WALLS : 1960 AGE: 56Y DATE: 06/23/2017 ROOM: 531 OBJECTIVE: The wound on the right groin and right flank was inspected, and there is just a small amount of exudate on top of the surface of the wound. The graft appears to be covered by granulation tissue. A wet-to-dry dressing was then placed. PLAN: We will continue wet-to-dry dressing twice a day and possibly tomorrow we will do a pulse lavage of the wound in the OR and then place a VAC system. In the meantime, continue him on IV vancomycin, because he has positive MRSA. This is about the 10th day of IV antibiotic therapy. He will likely need IV antibiotics a total of at least 14 days. DICTATING PHYSICIAN: RUDI CASTELLANOS M.D. [id number] PHY#: [id number] ID: [id number] JOB#: [id number] ACCT: [id number] cc: >
[2017-06-24] MEDS: HYDROMORPHONE HCL INJ/PF 2 MG/ML AMPULE IV PRN ×2 (00:47→12:52)
[2017-06-24] MEDS: NORMAL SALINE 1000 ML 1,000 ML IV PRN (00:55)
[2017-06-24] MEDS: OXYCODONE HCL IR 5 MG TABLET PO PRN ×5 (02:19→21:39)
[2017-06-24] MEDS: VANCOMYCIN HCL 1,250 MG in DEXTROSE 5%-WATER 250 ML IV SCH ×2 (06:10→14:12)
[2017-06-24] MEDS ORDERED: LIDOCAINE 0.5% INJ-PF (5 MG/ML) 50 ML SDV ONE (08:22)
[2017-06-24] MEDS ORDERED: DEXAMETHASONE SOD PHOSPHATE INJ 4 MG/1 ML VIAL ONE (08:50)
[2017-06-24] MEDS ORDERED: KETOROLAC TROMETHAMINE 60 MG/2 ML SDV ONE (08:50)
[2017-06-24] MEDS ORDERED: FENTANYL CITRATE INJ/PF 100 MCG/2 ML AMPUL ONE ×2 (08:50→10:26)
[2017-06-24] MEDS ORDERED: MIDAZOLAM 2 MG/2 ML INJ ONE (08:50)
[2017-06-24] MEDS ORDERED: PROPOFOL INJ 200 MG/20 ML VIAL IV ONE (08:51)
[2017-06-24] MEDS ORDERED: ONDANSETRON HCL INJ/PF 4 MG/2 ML SDV ONE (08:51)
[2017-06-24] MEDS ORDERED: HYDROMORPHONE HCL INJ/PF 2 MG/ML AMPULE ONE (08:52)
[2017-06-24] MEDS ORDERED: FENTANYL CITRATE INJ/PF 100 MCG/2 ML AMPUL IV PRN ×3 (10:15)
[2017-06-24] MEDS ORDERED: DIPHENHYDRAMINE HCL 50 MG/ML VIAL IV PRN (10:15)
[2017-06-24] MEDS ORDERED: PROMETHAZINE HCL INJ 25 MG/1 ML VIAL IV PRN (10:15)
[2017-06-24] MEDS ORDERED: MEPERIDINE HCL/PF INJ 25 MG/1 ML DISP.SYRIN IV PRN (10:15)
--- NOTE | 2017-06-24 11:33 | OPERATIVE REPORT E ---
Operative Report NAME: SUNNY WALLS : 1960 AGE: 56Y DATE OF SURGERY: ROOM: 531 PREOPERATIVE DIAGNOSIS: Abscess cavity,right groin. POSTOPERATIVE DIAGNOSIS: Abscess cavity, right groin. OPERATION: Debridement and pulse lavage and placement of a vacuum system. SURGEON: RUDI CASTELLANOS M.D. ANESTHESIA: MAC. INDICATIONS: This is a 56-year-old male who had a repair of recurrent inguinal hernia done 05/26/17. Patient noted to have a seroma with MRSA. This is about the 5th trip to the OR for this patient. At one time, he had a VAC placed, but unfortunately, the VAC somehow did not improve the wound. The graft was left intact since it was well covered by tissue. PROCEDURE: After adequate IV sedation, the right groin area was then prepped and draped in the usual sterile fashion. The wound roughly measured about 10 inches long x 2-1/2 inches wide by 2-inch deep. The surface of the cavity had some formed exudate and this was then debrided with the use of a curette. There was a piece of Vicryl suture sticking out and this was subsequently pulled out. Another suture noted and was pulled up with a forceps and divided sharply at its base. Again, the graft was not exposed and there was fair granulation tissue on top of it. Next, the wound was then pulse lavaged with initially 2 liters of saline. Next, after this, the wound was then inspected. There were a few other areas with thick exudate and this was then further curetted. Again, further pulse lavage using a liter of saline was used and following this, there appeared to be fairly good removal of the exudates and had a pink area almost throughout the wound. At this point, a VAC was then placed on top of the wound and the suction set at -125 mmHg pressure. Patient tolerated the procedure well, brought to the recovery room in satisfactory condition. Needle, instrument and sponge counts were all correct and estimated blood loss was about 10 mL. DICTATING PHYSICIAN: RUDI CASTELLANOS M.D. [id number] PHY#: [id number] ID: [id number] JOB#: [id number] ACCT: [id number] cc:RUDI CASTELLANOS M.D. >
[2017-06-24] MEDS: CITALOPRAM HYDROBROMIDE 20 MG TABLET PO SCH (12:07)
[2017-06-24] MEDS: LANSOPRAZOLE 30 MG TAB.RAP.DR PO SCH (12:07)
[2017-06-24] MEDS: DOCUSATE SODIUM 100 MG CAPSULE PO SCH ×2 (12:51→17:47)
[2017-06-24] MEDS: NICOTINE 21 MG/24 HR PATCH.TD24 TD SCH (12:51)
[2017-06-24] MEDS: NORMAL SALINE 10 ML SDV (SCHEDULED) IV SCH ×2 (12:52→21:39)
[2017-06-24 14:26] LABS: CREATININE RESULT 0.86 mg/dL (0.52-1.25)
[2017-06-25] MEDS: HYDROMORPHONE HCL INJ/PF 2 MG/ML AMPULE IV PRN ×2 (00:37→12:46)
[2017-06-25] MEDS: NORMAL SALINE 1000 ML 1,000 ML IV PRN ×2 (00:38→12:52)
[2017-06-25] MEDS: OXYCODONE HCL IR 5 MG TABLET PO PRN ×5 (05:30→23:02)
[2017-06-25] MEDS: VANCOMYCIN HCL 750 MG in DEXTROSE 5%-WATER 250 ML IV SCH ×3 (05:30→23:03)
[2017-06-25] MEDS: LANSOPRAZOLE 30 MG TAB.RAP.DR PO SCH (07:38)
[2017-06-25] MEDS: ONDANSETRON HCL INJ/PF 4 MG/2 ML SDV IV PRN (07:44)
[2017-06-25] MEDS: NORMAL SALINE 10 ML SDV (SCHEDULED) IV SCH ×2 (09:47→23:03)
[2017-06-25] MEDS: CITALOPRAM HYDROBROMIDE 20 MG TABLET PO SCH (09:47)
[2017-06-25] MEDS: DOCUSATE SODIUM 100 MG CAPSULE PO SCH ×2 (09:47→17:34)
[2017-06-25] MEDS: NICOTINE 21 MG/24 HR PATCH.TD24 TD SCH (09:47)
[2017-06-25] MEDS: GABAPENTIN 300 MG CAPSULE PO PRN ×2 (10:40→18:58)
--- NOTE | 2017-06-25 20:53 | PROGRESS NOTE E ---
Progress Note NAME: SUNNY WALLS : 1960 AGE: 56Y DATE: 06/25/2017 ROOM: 531 SUBJECTIVE: The VAC was malfunctioning today and a new VAC from the OR was placed. The VAC is now working and groin incision appears to be minimal inflammation and less tender. He is still on IV vancomycin for MRSA. The plan is possibly discharging tomorrow on a VAC and be followed at the wound care center. DICTATING PHYSICIAN: RUDI CASTELLANOS M.D. [id number] PHY#: [id number] ID: [id number] JOB#: [id number] ACCT: [id number] cc: >
[2017-06-26] MEDS: HYDROMORPHONE HCL INJ/PF 2 MG/ML AMPULE IV PRN ×2 (00:54→16:39)
[2017-06-26] MEDS: OXYCODONE HCL IR 5 MG TABLET PO PRN ×3 (04:44→12:33)
[2017-06-26] MEDS: NORMAL SALINE 1000 ML 1,000 ML IV PRN (04:45)
[2017-06-26] MEDS: VANCOMYCIN HCL 750 MG in DEXTROSE 5%-WATER 250 ML IV SCH (05:18)
[2017-06-26 05:23] LABS: CREATININE RESULT 0.98 mg/dL (0.52-1.25)
[2017-06-26] MEDS: LANSOPRAZOLE 30 MG TAB.RAP.DR PO SCH (08:45)
[2017-06-26] MEDS: CITALOPRAM HYDROBROMIDE 20 MG TABLET PO SCH (09:51)
[2017-06-26] MEDS: DOCUSATE SODIUM 100 MG CAPSULE PO SCH (09:51)
[2017-06-26] MEDS: NORMAL SALINE 10 ML SDV (SCHEDULED) IV SCH (09:51)
[2017-06-26] MEDS: NICOTINE 21 MG/24 HR PATCH.TD24 TD SCH (09:52)
[2017-06-26] MEDS: GABAPENTIN 300 MG CAPSULE PO PRN (09:57)
[2017-06-26 18:45] VITALS: BP 150/87
--- NOTE | 2017-06-29 07:47 | DISCHARGE SUMMARY E ---
Discharge Summary NAME: SUNNY WALLS : 1960 AGE: 56Y ADMITTED: 06/13/2017 DISCHARGED: 06/26/2017 REASON FOR ADMISSION: Postoperative wound infection. SUMMARY OF HOSPITALIZATION: The patient is a 56-year-old white male who underwent right inguinal herniorrhaphy with mesh by Nik Briones MD on 05/26/2017. Postoperatively, the patient developed a superficial wound infection which was treated with oral antibiotics and then percutaneous drainage. The patient presented to the emergency department on 06/13/2017 where he was found to have worsening cellulitis of his right groin incision, so he was admitted to the surgicalist service for intravenous antibiotics and IV fluids. The patient was kept n.p.o. on IV fluids. He did have a PIC line inserted. Over the ensuing 2 days, the patient's clinical condition did not improve and on the third hospital day, he was taken to the operating room by Rudi Castellanos MD where he underwent debridement of his right lower quadrant inguinal incision. The infection was confined to the skin and subcutaneous tissue and Wesley fascia. The mesh was not exposed and felt not to be involved with the infection, so it was left in situ. The patient was started on dressing changes and was taken back to the operating room 48 hours later for a wash out and additional debridement. Thereafter, the wound cleaned up and the patient had a wound V.A.C. placed. He did grow our MRSA and was started on IV vancomycin with appropriate sensitivities. By 06/26/2017, he was felt to have received maximum benefit from his hospitalization, tolerating a diet and ready for discharge home. FINAL DIAGNOSES: 1. Wound infection status post right inguinal herniorrhaphy. 2. Status post operative debridement x3, with wound V.A.C. placement. 3. MRSA positive. DISPOSITION: The patient is being discharged home to the care of his family with outpatient wound V.A.C. management, with sponge being changed every 3 days. He has a functional PIC line and will receive intravenous antibiotics, vancomycin 1500 mg once a day. DICTATING PHYSICIAN: VIC MENDEZ M.D. [id number] PHY#: [id number] ID: [id number] JOB#: [id number] ACCT: [id number] cc:RUDI CASTELLANOS M.D. VIC MENDEZ M.D. >
== END 2017-06-26 18:54 | disposition home health service (06) | DRG 863 ==
LOC: ER 07:27 → UNDOADMIN 10:51 → EH 10:51 → 5 12:27
PROVIDERS: ADMIT Surgery; ATTEND Surgery
PROC: 0HDAXZZ Extraction of Inguinal Skin, External Approach (ICD-10-PCS; principal; 2017-06-13 18:15)
PROC: 02HV33Z Insertion of Infusion Device into Superior Vena Cava, Percutaneous Approach (ICD-10-PCS; 2017-06-15)
PROC: B5181ZA Fluoroscopy of Superior Vena Cava using Low Osmolar Contrast, Guidance (ICD-10-PCS; 2017-06-15)
PROC: B548ZZA Ultrasonography of Superior Vena Cava, Guidance (ICD-10-PCS; 2017-06-15)
PROC: 0HDAXZZ Extraction of Inguinal Skin, External Approach (ICD-10-PCS; 2017-06-18)
PROC: 0HDAXZZ Extraction of Inguinal Skin, External Approach (ICD-10-PCS; 2017-06-20)
PROC: 0HDAXZZ Extraction of Inguinal Skin, External Approach (ICD-10-PCS; 2017-06-24)
DX: T81.4XXA Infection following a procedure, initial encounter (principal); L03.314 Cellulitis of groin; L02.214 Cutaneous abscess of groin; B95.62 Methicillin resistant Staphylococcus aureus infection as the cause of diseases classified elsewhere; M54.5 Low back pain; G89.29 Other chronic pain; Z96.643 Presence of artificial hip joint, bilateral; I10 Essential (primary) hypertension; J44.9 Chronic obstructive pulmonary disease, unspecified; M19.90 Unspecified osteoarthritis, unspecified site; F32.9 Major depressive disorder, single episode, unspecified; Z88.1 Allergy status to other antibiotic agents; Z91.040 Latex allergy status; Z88.5 Allergy status to narcotic agent; F17.210 Nicotine dependence, cigarettes, uncomplicated
CPT/HCPCS: 36415; 36569; 400; 71010; 76937; 77001; 800; 80048; 80053; 80202; 82565; 85025; 85027; 87040; 87070; 87075; 87077; 87186; 87205; 94640; 94799; 96374; 96375; 96376; 99284; J0131; J0330; J1100; J1170; J1642; J1741; J1885; J2250; J2405; J2704; J3010; J3370; J3490; J7030; J7060; J7620